=== PATIENT | male | born 1965 | race Caucasian/White ===

== ENCOUNTER 2017-05-17 18:21 | Observation (INO) ==
[2017-05-17 19:26] LABS: Basophils % 0.3 %; Eosinophils # 0.2 K/mcL (0.0-0.6); Eosinophils % 1.3 %; Hematocrit 46.8 % (37.5-50.1); Hemoglobin 15.6 g/dL (12.9-16.9); Immature Granulocytes % 0.6 % (0-4); Lymphocytes # 2.2 K/mcL (0.6-4.6); Lymphocytes % 17.5 %; Mean Corpuscular HGB Conc 33.3 g/dL (31.6-35.5); Mean Corpuscular Hemoglobin 28.2 pg (28.0-33.3); Mean Corpuscular Volume 84.5 fL (83.0-100.0); Mean Platelet Volume 8.5 fL (9.4-12.4); Monocytes # 1.5 K/mcL (0.0-1.3); Monocytes % 11.7 %; Neutrophils # 8.6 K/mcL (1.6-8.9); Platelet Count 315 K/mcL (140-400); Red Blood Count 5.54 M/mcL (4.19-5.50); Red Cell Distribution Width 13.8 % (11.5-14.5); Segmented Neutrophils % 68.6 %
[2017-05-17 19:33] LABS: INR 1.1; Prothrombin Time 11.6 Seconds (9.4-12.1)
[2017-05-17 19:36] LABS: Activated Partial Thrombo Time 31.5 Seconds (26.0-36.0)
[2017-05-17] MEDS ORDERED: Nitroglycerin 0.4 MG TAB.SUBL SL PRN (19:41)
--- NOTE | 2017-05-17 19:41 | Emergency Department Note ---
Disposition Clinical Impression: Hypokalemia Chest pain Qualifiers: Chest pain type: unspecified Qualified Code(s): R07.9 - Chest pain, unspecified Disposition: Admitted As Inpatient Condition: Good Referrals: Jhon Syed DO [Primary Care Provider] - Forms: ED Satisfaction Letter Chest Pain HPI - General Chief Complaint: ED Chest Pain Stated Complaint: chest pain/arm pain Time Seen by Provider: 05/17/17 18:30 Source: patient Limitations: no limitations Vital Signs Reviewed: Yes Nursing Notes Reviewed: Yes - History of Present Illness HPI Narrative: Mr. 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 The pain started yesterday as left arm pain that was nagging but not severe. He continued to deal with it until this afternoon when he began experiencing substernal chest pain that radiated to his back and his left neck. He denies SOB , palpitations, or worsening with exertion. To his knowledge he has never had a cardiac event, however he has had issues with hypokalemia in the past that has presented similarly. The patient further admits that he has not been taking his BP medications for about a month and a half due to inability to pay for them. Pt complaint: chest pain Onset (ago): day(s) (2) Time: 19:49 Duration: constant Onset: during rest Pain Location: left chest Severity: moderate Severity scale (1-10): 5 Quality: tightness, heaviness Pain Radiation: LUE, neck Improves with: nothing Worsens with: nothing Context: recent travel (4 [address] round trip over weekend) Associated symptoms: Denies: nausea, vomiting, dyspnea, palpitations, fever, cough - Related Data Previous Rx's Medication Instructions Recorded HYDROcodone/Acet 5/325 mg [[place] 1 - 2 tab PO Q4H PRN #7 tab 11/05/15 5-325 mg] HYDROcodone/Acet 5/325 mg [[place] 1 tab PO Q6H PRN #10 tab 11/15/15 5-325 mg] RX: predniSONE [Prednisone] 50 mg PO DAILY #7 tablet 11/15/15 Cyclobenzaprine [Flexeril] 10 mg PO Q8H #12 tablet 06/23/16 RX: Ibuprofen [Motrin] 800 mg PO Q8HR #30 tablet 06/23/16 HYDROcodone/Acet 5/325 mg [[place] 1 tab PO Q6H PRN #12 tab 10/20/16 5-325 mg] RX: PredniSONE [Deltasone] 40 mg PO DAILY #15 tablet 10/20/16 Benzonatate [Tessalon] 100 mg PO TID 3 Days capsule 01/22/17 Loratadine [Claritin] 10 mg PO DAILY #7 capsule 01/22/17 RX: Doxycycline 100 mg PO BID 7 Days capsule 01/22/17 Allergies Allergy/AdvReac Type Severity Reaction Status Date / Time No Known Allergies Allergy Verified 03/21/17 18:43 Review of Systems: CONSTITUTIONAL: No weight loss, fever, chills, weakness or fatigue. HEENT: Eyes: No visual loss, blurred vision, double vision or yellow sclerae. Ears, Nose, Throat: No hearing loss, sneezing, congestion, runny nose or sore throat. SKIN: No rash or itching. CARDIOVASCULAR: Chest pain present with radiation to left arm and neck, no dyspnea RESPIRATORY: No shortness of breath, cough or sputum. GASTROINTESTINAL: No anorexia, nausea, vomiting or diarrhea. No abdominal pain or blood. NEUROLOGICAL: No headache, dizziness, syncope, paralysis, ataxia, numbness or tingling in the extremities. No change in bowel or bladder control. MUSCULOSKELETAL: No muscle, back pain, joint pain or stiffness. HEMATOLOGIC: No anemia, bleeding or bruising. LYMPHATICS: No enlarged nodes. No history of splenectomy. PSYCHIATRIC: No history of depression or anxiety. ENDOCRINOLOGIC: No reports of sweating, cold or heat intolerance. No polyuria or polydipsia. ALLERGIES: No history of asthma, hives, eczema or rhinitis. Chest Pain PMH - Past Medical History Medical history: Reports: hypertension, RA, other Psychiatric history: Reports: no psych history - Social History Smoking Status: Never smoker Alcohol use: Reports: none Drug use: Reports: none Physical Exam Gen.: Vitals noted. No acute distress. AAOx3 HEENT: PERRL/EOMI, oropharynx clear, Normocephalic, atraumatic Neck: Supple. No adenopathy. Cardiac: RRR, no murmur, +S1/S2 Pulmonary: CTA bilaterally, no wheezes, rales or rhonchi, equal chest expansion Abdomen: soft, nontender, BS noted, no guarding Back: Nontender throughout. MSK: ROM intact, no joint swelling noted Extremities: no BLE edema, R calf tender associated with recent diagnosis of bravo's cyst, no cyanosis or clubbing Neuro: A&Ox3, moves all extremities, no focal deficits Psych: Appropriate mood and behavior - General Limitations: no limitations General appearance: alert, in no apparent distress Course Vital Signs Temperature 98.8 F 05/17/17 18:23 Pulse Rate 83 05/17/17 18:23 Respiratory Rate 16 05/17/17 18:23 Blood Pressure 234/109 05/17/17 18:23 O2 Sat by Pulse Oximetry 99 05/17/17 18:23 Temperature 98.8 F 05/17/17 18:23 Pulse Rate 78 05/17/17 20:11 Respiratory Rate 16 05/17/17 20:11 Blood Pressure 183/106 05/17/17 20:11 O2 Sat by Pulse Oximetry 98 05/17/17 20:11 Oxygen Delivery Oxygen Delivery Room Air Chest Pain - MDM Narrative Medical decision making narrative: Mr. Roland is a 52-year-old man with a history of RA and hypertension who presented to the ED with left arm pain and progressive chest pain for the past 3.5 hrs. the pain is in his left chest and now radiates to his central back and left jaw and left arm. He has never had pain like this before. He says that it is not aggravated by exertion and is not associated with shortness of breath. On arrival the patient's blood pressure was 230/110, however the blood pressure has dropped to 190/105 without intervention over the course of his time here. EKG on arrival demonstrate nonspecific ST-T wave changes the lateral precordial leads. We will start the patient on sublingual nitroglycerin. Metabolic panel demonstrated a potassium of 2.7, and he is being supplemented with both oral and IV potassium at this time. The patient will be admitted for chest pain workup he has not previously had a chest pain workup before. - Differential Diagnosis Likely: chest pain - Lab Data Lab results reviewed: Yes I reviewed the patient's lab results. Result diagrams: 05/17/17 19:10 05/17/17 19:10 Lab Results 05/17/17 05/17/17 05/17/17 Range/Units 19:10 19:10 19:10 WBC 12.5 H (4.3-11.1) K/mcL RBC 5.54 H (4.19-5.50) M/mcL Hgb 15.6 (12.9-16.9) g/dL Hct 46.8 (37.5-50.1) % MCV 84.5 (83.0-100.0) fL MCH 28.2 (28.0-33.3) pg MCHC 33.3 (31.6-35.5) g/dL RDW 13.8 (11.5-14.5) % Plt Count 315 (140-400) K/mcL MPV 8.5 L (9.4-12.4) fL Immature Gran % 0.6 (0-4) % Seg Neutrophils % 68.6 % Lymphocytes % 17.5 % Monocytes % 11.7 % Eosinophils % 1.3 % Basophils % 0.3 % Neutrophils # 8.6 (1.6-8.9) K/mcL Lymphocytes # 2.2 (0.6-4.6) K/mcL Monocytes # 1.5 H (0.0-1.3) K/mcL Eosinophils # 0.2 (0.0-0.6) K/mcL Basophils # 0.0 (0.0-0.2) K/mcL PT 11.6 (9.4-12.1) Seconds INR 1.1 APTT 31.5 (26.0-36.0) Seconds Sodium 140 (136-145) mEq/L Potassium 2.7 L (3.5-5.1) mEq/L Chloride 104 (98-107) mEq/L Carbon Dioxide 30 H (23-29) mEq/L BUN 12 (6-20) mg/dL Creatinine 0.79 (0.70-1.30) mg/dL Est GFR ( Amer) > 60 (> 60) Est GFR (Non-Af Amer) > 60 (> 60) BUN/Creatinine Ratio 15 (6-26) Glucose 93 (70-105) mg/dL Calculated Osmolality 289 (280-300) Calcium 8.8 (8.6-10.3) mg/dL Troponin I (< 0.04) ng/mL 05/17/17 Range/Units 19:10 WBC (4.3-11.1) K/mcL RBC (4.19-5.50) M/mcL Hgb (12.9-16.9) g/dL Hct (37.5-50.1) % MCV (83.0-100.0) fL MCH (28.0-33.3) pg MCHC (31.6-35.5) g/dL RDW (11.5-14.5) % Plt Count (140-400) K/mcL MPV (9.4-12.4) fL Immature Gran % (0-4) % Seg Neutrophils % % Lymphocytes % % Monocytes % % Eosinophils % % Basophils % % Neutrophils # (1.6-8.9) K/mcL Lymphocytes # (0.6-4.6) K/mcL Monocytes # (0.0-1.3) K/mcL Eosinophils # (0.0-0.6) K/mcL Basophils # (0.0-0.2) K/mcL PT (9.4-12.1) Seconds INR APTT (26.0-36.0) Seconds Sodium (136-145) mEq/L Potassium (3.5-5.1) mEq/L Chloride (98-107) mEq/L Carbon Dioxide (23-29) mEq/L BUN (6-20) mg/dL Creatinine (0.70-1.30) mg/dL Est GFR ( Amer) (> 60) Est GFR (Non-Af Amer) (> 60) BUN/Creatinine Ratio (6-26) Glucose (70-105) mg/dL Calculated Osmolality (280-300) Calcium (8.6-10.3) mg/dL Troponin I < 0.03 (< 0.04) ng/mL - Radiology Data Radiology results reviewed: Yes I reviewed the patient's radiology results. - EKG Data EKG attestation: Yes I reviewed and interpreted this EKG. EKG results narrative: EKG demonstrates normal sinus rhythm with a rate of 77, TX 138, QRS 106, QTC [address]-T wave changes in leads V4 through V6 with prominent U wave present and V3+V4. There is no ST elevation Heart Score - Score History: Moderately Suspicious EKG: Non Specific repolarisation Disturbance Age: 45-65 Risk Factors: 1-2 risk factors
--- NOTE | 2017-05-17 19:44 | Emergency Department Note ---
START Narrative - START START: I examined this patient and my medical decision-making was reviewed with the Resident Physician. I agree with the documented findings, disposition and treatment plan as described except to the extent set forth below. 52-year-old male presents to the ER for chest pain. Workup for ACS. Likely admission. Patient's blood pressure is been severely high at 190 systolic. Patient is off his blood pressure medications for the past few months. History of a heart catheter 3-4 years ago that he states was okay. This was done for chest pain. patient will be given a nitroglycerin here in the ER for chest pressure. His chest x-ray is negative. Admit for ACS evaluation
[2017-05-17 19:47] LABS: BUN/Creatinine Ratio 15 (6-26); Blood Urea Nitrogen 12 mg/dL (6-20); Calcium 8.8 mg/dL (8.6-10.3); Carbon Dioxide 30 mEq/L (23-29); Chloride 104 mEq/L (98-107); Glucose 93 mg/dL (70-105); Osmolality,Calculated 289 (280-300); Potassium 2.7 mEq/L (3.5-5.1); Sodium 140 mEq/L (136-145); eGFR For African Americans > 60 (> 60); eGFR For Non-African Americans > 60 (> 60)
[2017-05-17] MEDS ORDERED: Potassium Chloride Elixir 20 MEQ/15 ML UDC PO ONE (23:17)
[2017-05-17] MEDS ORDERED: Aspirin 325 MG TABLET PO ONE (23:20)
[2017-05-17] MEDS ORDERED: *HR* Methotrexate 2.5 MG TABLET PO SCH (23:30)
--- NOTE | 2017-05-17 23:31 | Internal Med History&Physical ---
Date of Encounter: 05/17/17 Time of Encounter: 22:00 Assessment and Plan (1) Costochondral chest pain Current visit: Yes Status: Acute (2) Chest pain Current visit: Yes Status: Acute Qualifiers: Chest pain type: unspecified Qualified Code(s): R07.9 - Chest pain, unspecified (3) Hypokalemia Current visit: Yes Status: Acute Replace potassium, check magnesium, check BMP and magnesium next morning (4) HTN (hypertension) Current visit: Yes Status: Acute Qualifiers: Hypertension type: essential hypertension Qualified Code(s): I10 - Essential (primary) hypertension Internal Medicine - H&P: HPI Chief complaint: Chest pain Admitted From: Emergency Dept Plans for Post Hospital Care: Home History of present illness: Mr. Roland is a 52 year old male with past medical history of rheumatoid arthritis, patient stated that yesterday he started to have left arm pain, he denies any chest pain with his arm pain, no shortness of breath. Patient stated that he thought that this most likely secondary to his rheumatoid arthritis, around noontime today patient started to have left shoulder pain then he started to have left sided chest pain radiating to his neck. Patient denies any shortness of breath or palpitation. Patient denies any exacerbation factor or relieving factor for his pain. Patient has history of uncontrolled hypertension and unfortunately he is not taking his medication due to financial issues. On arrival his systolic blood pressure was 190. Patient stated he continued to have chest pain 4 out of 10 in severity and not relieved by nitroglycerin Past Med Surg Social Fam HX - Past Medical History Medical history: hypertension, RA, other (History of Parsons's cyst) Psychiatric history: no psych history - Social History Smoking Status: Never smoker Smokeless Tobacco Status: Yes Alcohol use: none Drug use: none - Family History Mother Hx Family Cardiac Disorders: Yes Internal Medicine - H&P: Meds Allopurinol [Zyloprim 300 MG] 450 mg PO DAILY 05/17/17 [History] Amitriptyline [Elavil] 25 mg PO HS 05/17/17 [History] Folic Acid [Folic Acid] 1 mg PO DAILY 05/17/17 [History] Irbesartan [Avapro] 300 mg PO DAILY 05/17/17 [History] Methotrexate [Otrexup] 15 mg PO QWEEK 05/17/17 [History] Metoprolol [Lopressor] 50 mg PO BID 05/17/17 [History] Potassium Chloride [K-Tab ER] 20 meq PO DAILY 05/17/17 [History] Triamterene/HCTZ 37.5/25mg [Dyazide] 1 each PO DAILY 05/17/17 [History] 3 Allergy/AdvReac Type Severity Reaction Status Date / Time No Known Allergies Allergy Verified 03/21/17 18:43 All Systems PM: A 10-system review of systems was performed and is negative for pertinent findings except as documented above in the HPI. - Constitutional Vitals: Temp Pulse Resp BP Pulse Ox 98.1 F 70 16 182/105 96 05/17/17 23:26 05/17/17 23:26 05/17/17 23:26 05/17/17 23:26 05/17/17 23:26 General appearance: Present: no acute distress, obese - Head Head exam: Present: atraumatic, normocephalic - Neck Neck exam general surgery: Present: supple, trachea midline. Absent: lymphadenopathy - Respiratory Respiratory exam: Present: chest wall tenderness (Left-sided chest wall tenderness), decreased breath sounds. Absent: accessory muscle use, rales, rhonchi, wheezes - Cardiovascular Cardiovascular exam: Present: RRR, +S1, +S2. Absent: diastolic murmur, gallop, rubs, systolic murmur - GI/Abdominal GI/Abdominal exam: Present: normal bowel sounds, soft, no peritoneal signs. Absent: distended, tenderness - Extremities Exam Extremities exam: Present: warm, radial pulses palpable and symmetrical. Absent : calf tenderness, cyanotic, pedal edema - Neurological Exam Neurological exam: Present: CN II-XII intact, oriented X3, no focal deficits. Absent: pronater drift, facial droop, speech deficit - Skin Skin exam: Present: dry, intact Internal Med - H&P Results - Labs CBC & Chem 7: 05/18/17 00:37 05/17/17 19:10
[2017-05-17] MEDS ORDERED: 0.9 % Sodium Chloride 500 ML ONE (23:46)
[2017-05-17] MEDS: Folic Acid 1 MG TABLET PO SCH (23:56)
[2017-05-18 01:05] LABS: Basophils % 0.2 %; Eosinophils # 0.2 K/mcL (0.0-0.6); Eosinophils % 1.5 %; Hematocrit 45.5 % (37.5-50.1); Hemoglobin 15.2 g/dL (12.9-16.9); Immature Granulocytes % 0.5 % (0-4); Lymphocytes # 1.9 K/mcL (0.6-4.6); Lymphocytes % 14.9 %; Mean Corpuscular HGB Conc 33.4 g/dL (31.6-35.5); Mean Corpuscular Hemoglobin 28.4 pg (28.0-33.3); Mean Platelet Volume 8.9 fL (9.4-12.4); Monocytes # 1.1 K/mcL (0.0-1.3); Monocytes % 8.4 %; Neutrophils # 9.7 K/mcL (1.6-8.9); Platelet Count 262 K/mcL (140-400); Red Blood Count 5.35 M/mcL (4.19-5.50); Red Cell Distribution Width 14.1 % (11.5-14.5); Segmented Neutrophils % 74.5 %
[2017-05-18 01:10] LABS: INR 1.1; Prothrombin Time 11.4 Seconds (9.4-12.1)
[2017-05-18 09:02] LABS: BUN/Creatinine Ratio 15 (6-26); Blood Urea Nitrogen 13 mg/dL (6-20); Calcium 8.8 mg/dL (8.6-10.3); Carbon Dioxide 27 mEq/L (23-29); Chloride 109 mEq/L (98-107); Chol/HDL Ratio 3.8 (0-4.9); Cholesterol 126 mg/dL (< 200); Glucose 95 mg/dL (70-105); HDL Cholesterol 33 mg/dL (40-59); LDL Cholesterol,Calculated 81 mg/dL (0-99); Osmolality,Calculated 292 (280-300); Potassium 3.8 mEq/L (3.5-5.1); Sodium 141 mEq/L (136-145); Triglycerides 62 mg/dL (< 150); eGFR For African Americans > 60 (> 60); eGFR For Non-African Americans > 60 (> 60)
[2017-05-18] MEDS ORDERED: Regadenoson 0.4 MG/5 ML SYRINGE IVP ONE (09:48)
[2017-05-18] MEDS: Folic Acid 1 MG TABLET PO SCH (11:04)
--- NOTE | 2017-05-18 15:59 | Discharge Summary ---
Date of Encounter: 05/18/17 Time of Encounter: 11:15 - Discharge Diagnosis (1) DVT prophylaxis Priority: Secondary Status: Acute Comments: Patient was ambulatory. (2) Chest pain Priority: Secondary Status: Acute Comments: She reports sudden onset left arm pain while watching a movie. He reports that for well pain began radiating to his neck and into his left chest. Patient with history of RA and this was most likely secondary to RA. Patient reported no shortness of breath, no nausea or vomiting. No diaphoresis. Patient does have uncontrolled hypertension is not taking his medication due to financial constraints. He has not had chest pain today. The pain is reproducible with palpation and deep inspiration. He denies any change in routine. Troponins were negative 3. Stress test was negative. Chest x-ray was negative. Recommend the patient apply moist heat and taking analgesic pain relief for chest wall pain. Follow-up with primary care for continued evaluation and return immediately if symptoms return. Qualifiers: Chest pain type: unspecified Qualified Code(s): R07.9 - Chest pain, unspecified (3) Hypokalemia Priority: Secondary Status: Resolved (4) Costochondral chest pain Priority: Secondary Status: Acute Comments: Plan as above. (5) HTN (hypertension) Priority: Secondary Status: Chronic Comments: Patient has been hypertensive since arrival. He has not been taking his blood pressure medications at home due to financial problems. Qualifiers: Hypertension type: essential hypertension Qualified Code(s): I10 - Essential (primary) hypertension - Discharge Medications Prescriptions: Metoprolol [Lopressor] 50 mg PO BID #60 tablet Triamterene/HCTZ 37.5/25mg [Dyazide] 1 each PO DAILY #30 tablet Home Medications: Allopurinol [Zyloprim 300 MG] 450 mg PO DAILY 05/17/17 [History] Amitriptyline [Elavil] 25 mg PO HS 05/17/17 [History] Folic Acid 1 mg PO DAILY 05/17/17 [History] Irbesartan [Avapro] 300 mg PO DAILY 05/17/17 [History] Methotrexate [Otrexup] 15 mg PO QWEEK 05/17/17 [History] Potassium Chloride [K-Tab ER] 20 meq PO DAILY 05/17/17 [History] Metoprolol [Lopressor] 50 mg PO BID #60 tablet 05/18/17 [Rx] Triamterene/HCTZ 37.5/25mg [Dyazide] 1 each PO DAILY #30 tablet 05/18/17 [Rx] Allergies/Adverse Reactions: 3 Allergy/AdvReac Type Severity Reaction Status Date / Time No Known Allergies Allergy Verified 03/21/17 18:43 Procedures/tests Complete & Pending: Procedures Performed prior 72 hours Category Date Time Status NM herminio perf SPECT multi [NM] Routine Exams 05/18/17 06:54 Taken SP pharm nuclear stress Routine Y 05/18/17 06:54 Completed Date of admission: 05/17/17 22:06 Primary care physician: Kristin Curtis Discharging clinician: Azucena Gonzalez Anticipated date of discharge: 05/18/17 - Patient Status Disposition: Home, Self-Care Condition: Good Functional capacity at discharge: independent ambulation Overall status at discharge: patient is back to baseline - Discharge Instructions Follow Up With: Jhon Syed DO [Primary Care Provider] - 05/26/17 10:30 am Additional Instructions: Apply warm compresses to chest wall. Anti-inflammatories for pain control. Follow-up with primary care provider in the next 7-10 days for recheck. Return to the emergency department if her symptoms return, or for any other problems or concerns. If he began having a cough, fever, chills, return to the emergency department for evaluation. Taking her medications as directed. He may return to her normal activities as tolerated. - Diet and Activity Activity: increase activity as tolerated Diet: advance to your usual diet Hospital course: Mr. Roland is a 52 year old male with no significant past medical history, positive for gout, depression, mild hypertension. Patient presented with sudden onset left arm, left neck pain that radiated into the left chest. Began Monday night while he was watching worse. He denies any chest pain since that time. Pain is reproducible with palpation and deep inspiration. His lungs are clear. Stress test was negative, troponins were negative 3. Patient was admitted with hypokalemia. It was corrected with supplementation. Patient denies chest pain. He states that he is ready to go home. Stable and ready for discharge. - Time Spent with Patient Total time spent providing and/or coordinating discharge services: Less than 30 minutes - Constitutional Vitals: Temp Pulse Resp BP Pulse Ox 97.5 F L 61 18 175/102 96 05/18/17 15:21 05/18/17 15:21 05/18/17 15:21 05/18/17 15:21 05/18/17 15:21 General appearance: Present: cooperative, A&O X 3, no acute distress, obese, answers questions appropriately - Head Head exam: Present: atraumatic, normal inspection, normocephalic - Eye Eye exam: Present: normal appearance, conjuntiva pink, sclera anicteric - Neck Neck exam general surgery: Present: supple, trachea midline. Absent: lymphadenopathy - Respiratory Respiratory exam: Present: chest wall tenderness, CTAB. Absent: accessory muscle use, rales, rhonchi, wheezes - Cardiovascular Cardiovascular exam: Present: RRR, +S1, +S2. Absent: diastolic murmur, gallop, rubs, systolic murmur - GI/Abdominal GI/Abdominal exam: Present: normal bowel sounds, soft, no peritoneal signs. Absent: distended, hepatomegaly, tenderness - Extremities Exam Extremities exam: Present: warm, radial pulses palpable and symmetrical. Absent : calf tenderness, cyanotic, pedal edema - Neurological Exam Neurological exam: Present: alert, oriented X3, no focal deficits. Absent: facial droop, speech deficit - Skin Skin exam: Present: dry, intact, normal color, warm. Absent: rash
--- NOTE | 2017-05-18 16:40 | Electrocardiograph Report ---
[address] [address] Test Date: 2017-05-17 Pat Name: Ankit Roland Department: 102 Room: 3B Gender: M [employer]: Am : 1965 Requested By: Joan Lovell Order Number: [id number] Reading MD: Kenny Martins MD Measurements Intervals Wilson Rate: 77 P: 64 MO: 138 QRS: 83 QRSD: 106 T: 49 QT: 319 QTc: 350 Interpretive Statements SINUS RHYTHM LEFT ATRIAL ENLARGEMENT Electronically Signed On 05-18-2017 16:38:58 EST by Kenny Martins MD
[2017-05-18] MEDS ORDERED: methylPREDNISolone 125 MG/2 ML VIAL IVP ONE (23:29)
[2017-05-19] MEDS ORDERED: Acetaminophen 325 MG TABLET PO PRN (07:57)
--- NOTE | 2017-05-19 09:38 | Internal Med Progress Note ---
Date of Encounter: 05/19/17 Time of Encounter: 08:35 - Assessment and plan (1) Chest pain Current Visit: Yes Status: Acute Assessment and plan: He reports sudden onset left arm pain while watching a movie. He reports that for well pain began radiating to his neck and into his left chest. Patient with history of RA and this was most likely secondary to RA. Patient reported no shortness of breath, no nausea or vomiting. No diaphoresis. Patient does have uncontrolled hypertension is not taking his medication due to financial constraints. He has not had chest pain today. The pain is reproducible with palpation and deep inspiration. He denies any change in routine. Troponins were negative 3. Stress test was negative. Chest x-ray was negative. Recommend the patient apply moist heat and taking analgesic pain relief for chest wall pain. BP returned to baseline and pt has denied any further chest pain/tightness. He denies SOB, n/v, or diaphoresis. Follow-up with primary care for continued evaluation and return immediately if symptoms return. Qualifiers: Chest pain type: unspecified Qualified Code(s): R07.9 - Chest pain, unspecified (2) Hypokalemia Current Visit: Yes Status: Resolved Assessment and plan: Resolved. (3) Costochondral chest pain Current Visit: Yes Status: Acute Assessment and plan: Pain was reproducible with palpation and deep inspiration. Recommend moist heat and antiinflammatories. (4) HTN (hypertension) Current Visit: Yes Status: Chronic Assessment and plan: BP has returned to baseline. Home meds have been restarted. Qualifiers: Hypertension type: essential hypertension Qualified Code(s): I10 - Essential (primary) hypertension (5) Headache Current Visit: Yes Status: Acute Assessment and plan: Pt today reports frontal headache. He is concerned due to the fact that he does not normally get headaches. He has tenderness with palpation to frontal sinus. He denies rhinorrhea, PND, cough, vision changes or neck tenderness. Head cT ordered for evaluation. Claritin daily and Flonase daily. Qualifiers: Headache type: other headache syndrome Qualified Code(s): G44.89 - Other headache syndrome (6) DVT prophylaxis Current Visit: Yes Status: Acute Assessment and plan: Pt remains ambulatory. - Time Spent With Patient less than 15 minutes - Subjective Interval history: Pt was seen and assessed at 0835 this a.m. not at bs. Apparently at discharge last night, pts stated that she wanted him to have an LHC because they know people who have had MA with negative stress tests. Pt reported intermittent chest pressure that was unchange from his normal. He was mildly hypertensive so we kept him overnight for monitoring. This a.m. he states that he has a frontal OLSON and he does not normally get headaches. CT ordered. Will be discharged if negative. PT denies chest pain or pressure this a.m., BP 140/80 this a.m. He denies SOB, n/v/d, abdominal pain or vision changes , no dizziness or neck pain/stiffness. - Constitutional Vitals: Temp Pulse Resp BP Pulse Ox 98.2 F 62 18 140/87 96 05/19/17 06:24 05/19/17 06:24 05/19/17 06:24 05/19/17 06:24 05/19/17 06:24 General appearance: Present: cooperative, A&O X 3, no acute distress, obese, answers questions appropriately - Head Head exam: Present: atraumatic, normal inspection, normocephalic - Eye Eye exam: Present: EOMI, normal appearance, PERRL, conjuntiva pink, sclera anicteric. Absent: nystagmus - Neck Neck exam general surgery: Present: normal inspection, supple, trachea midline. Absent: lymphadenopathy, tenderness - Respiratory Respiratory exam: Present: CTAB. Absent: accessory muscle use, chest wall tenderness, decreased breath sounds, rales, rhonchi, wheezes - Cardiovascular Cardiovascular exam: Present: RRR, +S1, +S2. Absent: diastolic murmur, gallop, rubs, systolic murmur - GI/Abdominal GI/Abdominal exam: Present: normal bowel sounds, soft, no peritoneal signs. Absent: distended, tenderness - Extremities Exam Extremities exam: Present: normal capillary refill, normal inspection, warm, radial pulses palpable and symmetrical. Absent: calf tenderness, cyanotic, pedal edema, tenderness - Neurological Exam Neurological exam: Present: alert, oriented X3, no focal deficits, strengths equal and symetr throughout. Absent: facial droop, speech deficit - Skin Skin exam: Present: dry, intact, normal color, warm. Absent: rash Internal Medicine: Result - Labs CBC & Chem 7: 05/18/17 00:37 05/18/17 07:41 - ABG Interpretation ABG results: PT/INR, D-dimer PT 11.4 Seconds (9.4-12.1) 05/18/17 00:37 Consult Discharge Plan - Plan Additional Instructions: Apply warm compresses to chest wall. Anti-inflammatories for pain control. Follow-up with primary care provider in the next 7-10 days for recheck. Return to the emergency department if her symptoms return, or for any other problems or concerns. If he began having a cough, fever, chills, return to the emergency department for evaluation. Taking her medications as directed. He may return to her normal activities as tolerated. Referrals: Jhon Syed DO [Primary Care Provider] - 05/26/17 10:30 am Prescriptions: Metoprolol [Lopressor] 50 mg PO BID #60 tablet Triamterene/HCTZ 37.5/25mg [Dyazide] 1 each PO DAILY #30 tablet
[2017-05-19] MEDS: Folic Acid 1 MG TABLET PO SCH (09:50)
[2017-05-19 10:38] VITALS: BP 142/90
== END 2017-05-19 13:25 | disposition home or self-care (01) ==
LOC: EMEROO 18:21 → 3BNU 18:21
PROVIDERS: ADMIT Family Medicine; ATTEND Registered Nurse

== ENCOUNTER 2018-02-12 10:54 | Inpatient (IN) ==
--- NOTE | 2018-02-11 22:10 | Discharge Summary ---
<MarissarobbTarah peguero Raman - Last Filed: 02/11/18 22:13> Orders not resulted at time of discharge: Pending orders 02/12/18 00:01 XR knee RT limited 1-2V [XR] Routine H/H [Hemoglobin and Hematocrit] [HEME] Routine Date of Encounter: 02/11/18 - Discharge Diagnosis (1) Status post total knee replacement, right Status: Acute (2) Arthritis of knee, right Status: Acute (3) Gout Status: Acute (4) Rheumatoid arthritis Status: Acute (5) HTN (hypertension) Status: Chronic - Hospital Course Hospital course: Mr. Roland is a 52 year old male - Time Spent with Patient Total time spent providing and/or coordinating discharge services: - Discharge Medications Prescriptions: PredniSONE [Deltasone] 20 mg PO DAILY #12 tablet Home Medications: Allopurinol [Zyloprim 300 MG] 450 mg PO DAILY 05/17/17 [History] Irbesartan [Avapro] 300 mg PO DAILY 05/17/17 [History] Potassium Chloride [K-Tab ER] 20 meq PO DAILY 05/17/17 [History] Metoprolol [Lopressor] 50 mg PO BID #60 tablet 05/18/17 [Rx] Triamterene/HCTZ 37.5/25mg [Dyazide] 1 each PO DAILY #30 tablet 05/18/17 [Rx] Aspirin Enteric Coated [Aspirin EC] 325 mg PO BID #20 tablet.dr 02/11/18 [Rx] OxyCODONE Immed Rel [Roxicodone 5 MG] 5 mg PO Q6HR PRN 7 Days #28 tablet [Rx] Leflunomide 20 mg PO DAILY 02/12/18 [History] PredniSONE [Deltasone] 20 mg PO DAILY #12 tablet 02/15/18 [Rx] Allergies/Adverse Reactions: 3 Allergy/AdvReac Type Severity Reaction Status Date / Time No Known Allergies Allergy Verified 02/12/18 11:41 Primary care physician: Jhon Syed DO - Patient Status Disposition: Transfer SNF Condition: Good - Discharge Instructions Follow Up With: Jhon Syed DO [Primary Care Provider] - <Nick Ibanez - Last Filed: 02/12/18 11:30> Orders not resulted at time of discharge: Pending orders 02/12/18 00:01 XR knee RT limited 1-2V [XR] Routine H/H [Hemoglobin and Hematocrit] [HEME] Routine 02/12/18 11:06 US anesthesia pain block [US] Routine Date of Encounter: 02/12/18 - Discharge Diagnosis (1) Arthritis of knee, right Priority: Primary Status: Chronic (2) Gout Priority: Secondary Status: Chronic Qualifiers: Gout site: unspecified site Gout etiology: unspecified cause Chronicity: unspecified Qualified Code(s): M10.9 - Gout, unspecified (3) Rheumatoid arthritis Priority: Secondary Status: Chronic Qualifiers: Rheumatoid arthritis location: unspecified site Rheumatoid factor presence : unspecified presence Qualified Code(s): M06.9 - Rheumatoid arthritis, unspecified (4) Status post total knee replacement, right Priority: Primary Status: Acute (5) HTN (hypertension) Priority: Secondary Status: Chronic Qualifiers: Hypertension type: unspecified Qualified Code(s): I10 - Essential (primary ) hypertension - Hospital Course Hospital course: Mr. Roland is a 52 year old male - Time Spent with Patient Total time spent providing and/or coordinating discharge services: Primary care physician: Jhon Syed DO <Gudelia Dowling - Last Filed: 02/15/18 18:06> - NOTES TO OUTPATIENT PROVIDER Notes to Outpatient Provider: Will start prednisone taper during admission on per following protocol: 20mg daily x 3 days (total). 15mg daily x 3 days. 10mg daily x 3 days. 5mg daily x 3 days Orders not resulted at time of discharge: Pending orders 02/12/18 11:06 US anesthesia pain block [US] Routine Date of Encounter: 02/15/18 Time of Encounter: 12:20 - Discharge Diagnosis (1) Status post total knee replacement, right Priority: Primary Status: Acute (2) Arthritis of knee, right Priority: Primary Status: Chronic (3) Acute blood loss anemia Priority: Secondary Status: Acute (4) Postoperative urinary retention Priority: Secondary Status: Chronic (5) DVT prophylaxis Priority: Secondary Status: Acute (6) Gout Priority: Secondary Status: Chronic Qualifiers: Gout site: unspecified site Gout etiology: unspecified cause Chronicity: unspecified Qualified Code(s): M10.9 - Gout, unspecified (7) HTN (hypertension) Priority: Secondary Status: Chronic Qualifiers: Hypertension type: unspecified Qualified Code(s): I10 - Essential (primary ) hypertension (8) Rheumatoid arthritis Priority: Secondary Status: Chronic Qualifiers: Rheumatoid arthritis location: unspecified site Rheumatoid factor presence : unspecified presence Qualified Code(s): M06.9 - Rheumatoid arthritis, unspecified (9) Hypokalemia Status: Resolved - Hospital Course Hospital course: Mr. Roland is a 52 year old male s/p Right robotic-assisted Total knee replacement 02/12/18 with history of HTN, gout, and RA. He did have episode of postoperative urinary retention and did require straight cath day of surgery but this resolved by POD#1 and did not require fleming. Patient has history of this. Otherwise progressed well and participated in therapy. Labs were rechecked today before discharge and he was found to have elevated WBC at 15.5, he has had a temp MAX of 99.4 during hospital course wanted to confirm no development of pneumonia or other infectious process. CXR today showed no acute abnormalities. Denied cough, chest pain, SOB, urinary burning. He feels well. He states his WBC always elevated when his RA flairs. He states he did not get his RA medication until today and has gone several days without it and now feels a flair happening. We did contact Dr. Young office who recommended starting a prednisone taper for this acute flair and this was started today to continue at [facility]. Patient is wanting to leave. Vitals are stable, afebrile. He is now stable for discharge. Patient seen at bedside, without complaints. A&O x 3 Afebrile, vital signs stable. dressings c/d/i with no visible drainage or erythema. no calf tenderness to palpation good dorsiflexion of foot, grossly NV intact. Labs reviewed. H/H 12.0/35.3- stable, asymptomatic. WBC 15.5 - Per patient this is his normal during RA flair Pain control: adequate Participating in PT. All questions and concerns addressed. Chronic h/o urinary retension postoperatively.now resolved Educated on use of incentive spirometer. Encouraged ambulation and proper hydration. Patient educated on post-operative restrictions and post-operative care. Assessment and plan: Continue with postoperative care Discharge plan: [facility], accepted at [place] today - Time Spent with Patient Total time spent providing and/or coordinating discharge services: Date of admission: 02/12/18 16:36 Primary care physician: Jhon Syed DO Consults: 02/12/18 19:15 Consult to Orthopedic Navigator [CONS] [CONS] Routine Consult to Physical Therapy [CONS] Routine Comment: Evaluate, develop and impliment POC Reason for Consult: post knee surgery Does patient have active BEDREST order?: No Is patient medically & hemodynamically stable?: Yes Consult to Book Repairer [CONS] Routine Reason for SW Consult: post op joint replacement RT Post Op Consult [CONS] Routine Discharging clinician: Nick Ibanez Anticipated date of discharge: 02/15/18 Labs on day of discharge: Labs from last 24 hours 02/15/18 02/15/18 12:07 12:07 WBC 15.5 H D RBC 4.05 L Hgb 12.0 L D Hct 35.3 L MCV 87.2 MCH 29.6 MCHC 34.0 RDW 14.2 Plt Count 355 MPV 9.2 L Immature Gran % 0.9 Seg Neutrophils % 74.1 Lymphocytes % 8.9 Monocytes % 14.5 Eosinophils % 1.4 Basophils % 0.2 Neutrophils # 11.5 H Lymphocytes # 1.4 Monocytes # 2.3 H Eosinophils # 0.2 Basophils # 0.0 Sodium 136 Potassium 3.6 Chloride 99 Carbon Dioxide 30 H BUN 11 Creatinine 0.71 Est GFR ( Amer) > 60 Est GFR (Non-Af Amer) > 60 BUN/Creatinine Ratio 15 Glucose 118 H Calculated Osmolality 282 Calcium 9.5 - Impressions ITS Impressions Knee X-Ray 02/12/18 00:01 IMPRESSION: Expected postoperative changes from total knee arthroplasty with patellar resurfacing D/ / 02/12/2018 16:31:23 Aleksander Zazueta MD / [facility] Interpreting Provider: Aleksander Zazueta MD Chest X-Ray 02/15/18 13:12 IMPRESSION: No acute cardiopulmonary abnormality. D/ / Nick Ridley MD / Nick Ridley MD Interpreting Provider: Nick Ridley MD - Patient Status Functional capacity at discharge: uses cane/walker Overall status at discharge: patient is back to baseline - Diet and Activity Activity: as per physical therapy Diet: advance to your usual diet
[2018-02-12] MEDS ORDERED: Famotidine 20 MG/2 ML VIAL IVP ONE (11:05)
[2018-02-12] MEDS ORDERED: Celecoxib 100 MG CAPSULE PO ONE (11:06)
[2018-02-12] MEDS ORDERED: Pregabalin 75 MG CAPSULE PO ONE (11:06)
[2018-02-12] MEDS ORDERED: Acetaminophen IV 1,000 MG/100 ML INFUS..BTL IVPB ONE (11:06)
[2018-02-12] MEDS ORDERED: CeFAZolin Syr 2,000MG/20 ML 2,000 MG/20 ML SYRINGE IVPB ONE (11:15)
[2018-02-12] MEDS ORDERED: Ringers Solution, Lactated 1,000 ML IVC SCH ×2 (11:15→19:15)
[2018-02-12] MEDS ORDERED: *HR* FentaNYL (PF) 100 MCG/2 ML VIAL ONE (11:16)
[2018-02-12] MEDS ORDERED: *HR* Midazolam HCl 2 MG/2 ML VIAL ONE (11:16)
[2018-02-12] MEDS ORDERED: Dexamethasone 4 MG/ML VIAL ONE (11:17)
[2018-02-12] MEDS ORDERED: *HR* Propofol 200 MG/20 ML VIAL IVP ONE (11:18)
[2018-02-12] MEDS ORDERED: Lidocaine -MPF 2% 2 ML VIAL ONE (11:18)
[2018-02-12] MEDS ORDERED: Ondansetron 4 MG/2 ML VIAL ONE (11:18)
--- NOTE | 2018-02-12 11:30 | History & Physical Report ---
Date of Encounter: 02/12/18 Time of Encounter: 11:30 24 Hour HP Update - Instructions Instructions: If the History and Physical is less than 30 days old and was completed prior to A.M. admission and or procedure and has NOT been updated on calendar day of procedure please complete this update prior to performing procedure. - Update Patient reports changes in Medical Condition: No Changes in examination, assessment, or condition: No Changes in Medication: No Preop tests/diagnostics Reviewed: Yes Surgery Remains Indicated: Yes Consent for Planned Operative Procedure(s) Verified: Yes - Pre-Operative Checklist Preoperative Checklist Indicated: No Prophylactic Antibiotic Ordered: Yes Is VTE Prophylaxis Indicated?: Yes
[2018-02-12] MEDS ORDERED: ROPIVACAINE HCL/PF 0.5% 30 ML VIAL ONE (11:50)
[2018-02-12] MEDS ORDERED: Bupivacaine/Clonidine Syringe 1 EACH SYRINGE ONE (11:51)
--- NOTE | 2018-02-12 11:57 | Anesthesia Evaluation PreOp ---
Date of Encounter: 02/12/18 Time of Encounter: 12:00 - Past History Planned Operation: Rt TKA Cardiac History: HTN, Hyperlipidemia, Other (CAD) Pulmonary History: Denies Any Significant HX [employer]HE[employer]ADER History: Denies Any Significant HX, Other (Restless Leg Syndrome) Other Medical History: Other (Gout Osteoarthritis) Anesthesia History: No Prior Anesthetic Complications Alcohol Use: rarely Drug use: none Medications and Allergies Allopurinol [Zyloprim 300 MG] 450 mg PO DAILY 05/17/17 [History] Irbesartan [Avapro] 300 mg PO DAILY 05/17/17 [History] Potassium Chloride [K-Tab ER] 20 meq PO DAILY 05/17/17 [History] Metoprolol [Lopressor] 50 mg PO BID #60 tablet 05/18/17 [Rx] Triamterene/HCTZ 37.5/25mg [Dyazide] 1 each PO DAILY #30 tablet 05/18/17 [Rx] Aspirin Enteric Coated [Aspirin EC] 325 mg PO BID #20 tablet. 02/11/18 [Rx] OxyCODONE Immed Rel [Roxicodone 5 MG] 5 mg PO Q6HR PRN 7 Days #28 tablet [Rx] Leflunomide [Leflunomide] 20 mg PO DAILY 02/12/18 [History] 3 Allergy/AdvReac Type Severity Reaction Status Date / Time No Known Allergies Allergy Verified 02/12/18 11:41 - Meds/Allergy Pre-op Review Medications Reviewed: Yes Allergies Reviewed: Yes Beta Blockers on Current Med List: Yes (Metoprolol today 0800) Anesthesia Results - Labs Laboratory Tests 02/08/18 02/08/18 02/08/18 16:47 16:47 16:47 Hgb 14.2 Hct 43.4 Plt Count 305 PT 12.5 H INR 1.1 APTT 36.9 H Sodium 137 Potassium 3.7 BUN 15 Creatinine 0.85 - Imaging EKG: report reviewed (SR) Additional studies: Stress Test negative for ischemia EF 70% Anesthesia Exam O2 Sat Height 1.75 m Height 1.75 m Weight 87.543 kg Weight 87.543 kg O2 Sat by Pulse Oximetry 97 Vital Signs Temp Pulse Resp BP Pulse Ox 99.2 F 64 18 133/82 97 02/12/18 11:20 02/12/18 11:20 02/12/18 11:20 02/12/18 11:20 02/12/18 11:20 Height: 5'9 Weight: 193 lbs NPO (# of Hours): MN Pain Scale: 0 - HEENT Pupil (Motor): Pupils equal, EOMI Mallampati: II Oral Opening: Greater than 3 - [employer]ER LOC: Oriented [place] Motor: Normal RUE, Normal LUE, Normal RLE, Normal LLE, Normal Face [employer] Sensory: Normal: RUE, LUE, RLE, LLE, Face - Cardiac Rhythm: Regular Murmur: None JVD: No Carotid Bruit: No - Pulmonary Breath Sounds: bilateral Clear Respiratory Effort: Symmetrical Anesthesia Assess/Plan ASA Score: 3 (HTN CAD) Modified Nas Scale for Level of Consciousness: Cooperative, oriented, and tranquil Anesthetic Plan: Regional, MAC Monitoring Plan: Standard Monitors Recovery Plan: PACU (Discussed SAB, Adductor Canal Block, possible GA, agrees to proceed)
[2018-02-12] MEDS ORDERED: Ethanol\\Acetic Acid\\Na Ace\\Ben 1,000 ML IRRIG.SOLN IR ONE (12:09)
[2018-02-12] MEDS ORDERED: Lidocaine -MPF 1% 5 ML AMPUL ONE (12:16)
--- NOTE | 2018-02-12 12:41 | Anesthesia Procedures ---
Date of Encounter: 02/12/18 Time of Encounter: 12:38 Procedures: Anesthesia - Epidural/Spinal Patient ID/Chart reviewed: Yes Patient examined: Yes Consent Obtained: Yes Supplemental Oxygen: Nasal Cannula Supplemental Oxygen Rate (L/min): 2 Sedation: Versed (mg): 2 Sedation: Fentanyl (mcg): 50 Site Prep: Aseptic Technique, Sterile prep and drape, 0.5% Chlorhexidine/Alcohol Patient position: upright Local Anesthetic: Lidocaine 1% Amount of Local Anesthetic used: 2 Blood: No CSF: Yes Paresthesia: No Spinal Needle Gauge: 25 ([employer]) Spinal Dose: 2ml 0.5% Bupivacaine with 200mcg duramorph Procedure: SAB performed with patient in sitting position viaL L3-L4 on first attempt with no blood or parasthesia. Clear CSF X4 quads. Tolerated well Vitals + FHT's: Vital Signs/O2 Sat/Glucose, Most Recent Temp Pulse Resp BP Pulse Ox 99.2 F 67 16 115/68 99 02/12/18 11:20 02/12/18 12:37 02/12/18 12:37 02/12/18 12:37 02/12/18 12:37 - Nerve Block Procedure Date: 02/12/18 Time: 12:45 Allergies/Adv Reactions: NKDA Pre-op Diagnosis: Right Knee Osteoarthritis Surgical Procedure: Robotic Right TKA Checklist: Correct Patient Identifier, Correct procedure, History checked Correct side: Right Blood Thinner: No Monitor Applied: EKG, BP, Pulse Oximetry Supplemental Oxygen via Nasal Cannula (L/min): 2 Sedation: Versed (mg): 2 Sedation: Fentanyl (mcg): 50 Indication: Post Op Analgesia Pre-op Neuro Deficits: No Block Type: Other (Adductor Canal and IPACK performed with no difficulty) Catheter placed: No Sterile Technique: Yes Ultrasound used: Yes Anatomy identified: Yes Visual spread of Local: Yes Neuro Stimulation: No Blood on Needle Aspiration: No Smooth Injection of Local: Yes Pain with Injection of Local: No Prep: Chlorhexadine Needle: 21 x 100 mm Stimuplex Local: 0.25% Bupivicaine w/Clonidine 20 mcg/cc, Ropivacaine (30ml of Ropivacaine with decadron 8mg used on adductor canal block and 20ml of bupivacaine 0.25% with clonidine 20mcg/ml used for IPACK) Number of Attempts: 1 Complications: None/effective block
[2018-02-12] MEDS ORDERED: *HR* OxyCODONE/APAP 5/325 TABLET PO PRN (13:01)
[2018-02-12] MEDS ORDERED: Ondansetron 4 MG/2 ML VIAL IVP PRN ×2 (13:01→19:15)
[2018-02-12] MEDS ORDERED: *HR* PHENYLEPHRINE 1,000 MCG/10 ML SYRINGE IVP ONE ×2 (13:07→13:58)
[2018-02-12] MEDS ORDERED: EPHEDrine 50 MG/ML VIAL ONE (13:17)
--- NOTE | 2018-02-12 13:53 | Orthopedic Operative Note ---
Date of procedure: 02/12/18 Pre-op diagnosis: Right knee arthritis Post-op diagnosis: same Procedure: Procedure: Right robotic-assisted Total knee replacement Estimated blood loss: 100 cc Hardware: Metal and polyethylene replacement. Press-fit [place] Femur: 4 Tibia:5 PS insert: 9 Patella: 36 Exam Under anesthesia: 40 degree flexion contracture 4 degrees varus as calculated by the robot full flexion and no instability Procedural Notes: Grade 4 arthritic changes tell femoral joint medial compartment. Operative procedure: The patient was brought to the operating room and placed on the operating room table. After general anesthesia was administered the operative knee was examined. Findings were noted in the exam under anesthesia. The operative extremity was prepped and draped in sterile surgical fashion. The patient received IV antibiotics prior to skin incision. A standard midline incision was made centered over the patella. The incision was made through the skin and subcutaneous tissue. A medial parapatellar tendon approach was performed. Care was taken to preserve tissue along the medial aspect of the patella. And to protect the patella tendon. The deep MCL was released off the medial tibia. The infra patella fat pad was excised. The patella was everted and cut was made at the level of the insertion of the quadriceps and patella tendon. The patella was sized to 36 the guide was seated and the lug holes are drilled. Knee was brought into flexion. Patient noted to have grade 4 arthritic changes medial compartment patellofemoral joint. Steinmann pins were placed in the tibia and the femur for the tibial and femoral arrays respectively. Checkpoints were also placed in the tibia and the femur for calculation purposes. The knee including the femur and the tibial registered. Osteophytes , ACL and PCL were excised at this point. Extension and flexion were assessed with a valgus stress components were adjusted on the computer to balance the knee. Femoral cuts were made first with robotic assistance, these included the anterior cut posterior cuts chamfer cuts. Tibial cut was then performed with robotic assistance as well. Bone fragments were removed, as well as the medial and lateral meniscus. The size 5 femoral guide was seated box cut was made lug holes are drilled. The size 5 tibial tray was seated and prepared with the fin cutter. Trial reduction with the 9 TS Rowena revealed extension of 0 degree and 1 degree varus full flexion. No varus valgus instability. Trial reduction revealed excellent patella tracking. All trial components were removed all bony surfaces were irrigated. The Tibia was seated followed by the femur, The selected Rowena size was seated and secured patella. Patient had similar findings for motion and stability. The knee was closed by the PA. The knee was then irrigated out with 2 L of pulse irrigation. The extensor mechanism was closed with #2 FiberWire suture and #2 PDS suture. The subcutaneous tissue was then irrigated and closed deep with #1 PDS suture superficially with 0 PDS suture and skin was closed with zip tie The patient was then placed in a sterile dressing and a postoperative brace extubated and transferred to recovery room in stable condition. Anesthesia: spinal Surgeon: Nick Ibanez Was there an store assistant present: No Estimated blood loss (cc): 100 Condition: stable Disposition: PACU
[2018-02-12] MEDS ORDERED: Propofol 500 MG/50 ML INFUS..BTL ONE (14:04)
--- NOTE | 2018-02-12 14:43 | Anesthesia Evaluation Post Op ---
Date of Encounter: 02/12/18 Time of Encounter: 14:45 - Vital Signs Vital Signs: Vital Signs/O2 Sat/Glucose, Most Current Temp Pulse Resp BP Pulse Ox 02/12/18 14:33 98.6 F 69 16 108/72 96 02/12/18 14:23 98.6 F 74 16 110/69 94 02/12/18 12:37 67 16 115/68 99 02/12/18 12:00 61 16 125/82 98 02/12/18 11:20 99.2 F 64 18 133/82 97 - Lungs Lungs: Clear Ascult./Percussion - Airway Airway: Non-obstructed - Cardiovascular Regular Rate - Mental Status Mental Status: Alert & Oriented, Answers Appropriately - Pain Pain Scale: 0 - Nausea Vomiting Nausea Vomiting: Not Present - Hydration Hydration: Ice chips - Discharge PostOp Status: Transfer Patient to floor
[2018-02-12 15:28] LABS: Hematocrit 36.7 % (37.5-50.1)
[2018-02-12 15:29] LABS: Hemoglobin 12.2 g/dL (12.9-16.9)
--- NOTE | 2018-02-12 15:47 | Physician Discharge Referral ---
<Tarah De Souza Raman - Last Filed: 02/12/18 15:46> Home Health/Hosp Referral Info Transfer to: Home Health Attending Provider: Provider in Charge Post Discharge: PCP - Diagnosis (1) Status post total knee replacement, right Priority: Primary Status: Acute (2) Arthritis of knee, right Priority: Primary Status: Chronic (3) Gout Status: Chronic (4) Rheumatoid arthritis Status: Chronic (5) HTN (hypertension) Status: Chronic - Respiratory Orders Smoking Cessation: Smoking cessation has been advised. For more information, call the [place] Tobacco Quit Line at 7-627-SFNM-NOW. - Activity Activity Orders: Up ad daniel, Ambulate, Chair, Walker - Services Needed Following services are medically necessary services: Nursing, Home Health Aide, Physical Therapy, Occupational Therapy Home Care Orders: Opsite dressing, leave intact until first post-operative visit. If dressing becomes >50% saturated, contact office, remove dressing and place appropriate dressing in its place. Do not allow for dressing to get wet. Zipline in place, plan to remove at post-operative day #14-16. Total Joint Precautions x 6 weeks Apply cold therapy wrap 3-6x/day for 20 minutes at a time. Encourage ambulation throughout the day Use Incentive spirometer 10x/hour. Elevate affected extremity above heart as tolerated. Brace: Wear knee immobilizer at night until first post-operative appt. - Transfer Medications Home Medications: Allopurinol [Zyloprim 300 MG] 450 mg PO DAILY 05/17/17 [History] Irbesartan [Avapro] 300 mg PO DAILY 05/17/17 [History] Potassium Chloride [K-Tab ER] 20 meq PO DAILY 05/17/17 [History] Metoprolol [Lopressor] 50 mg PO BID #60 tablet 05/18/17 [Rx] Triamterene/HCTZ 37.5/25mg [Dyazide] 1 each PO DAILY #30 tablet 05/18/17 [Rx] Aspirin Enteric Coated [Aspirin EC] 325 mg PO BID #20 tablet. 02/11/18 [Rx] OxyCODONE Immed Rel [Roxicodone 5 MG] 5 mg PO Q6HR PRN 7 Days #28 tablet [Rx] Leflunomide [Leflunomide] 20 mg PO DAILY 02/12/18 [History] Allergies/Adverse Reactions: 3 Allergy/AdvReac Type Severity Reaction Status Date / Time No Known Allergies Allergy Verified 02/12/18 11:41 Certification: Further, I certify that my clinical findings support that this patient is homebound (i.e. absences from home require considerable and taxing effort and are for medical reasons or roman catholic services or infrequently or short duration when for other reasons) because: Homebound Reason: Post-surgery restriction and or conditions limit ability to leave home Attestation: My signature below is to certify that this patient is under my care and that I, or nurse practitioner, or a physician's reproductive healthcare assistant working with me, has a face-to -face encounter with this patient. <Nick Ibanez - Last Filed: 02/15/18 08:40> - Diagnosis (1) Arthritis of knee, right Status: Chronic (2) Gout Status: Chronic (3) Rheumatoid arthritis Status: Chronic (4) Status post total knee replacement, right Status: Acute (5) HTN (hypertension) Status: Chronic (6) Postoperative urinary retention Status: Acute (7) Acute blood loss anemia Status: Acute - Respiratory Orders Smoking Cessation: Smoking cessation has been advised. For more information, call the [place] Tobacco Quit Line at 1-302-NEJW-NOW. Certification: Further, I certify that my clinical findings support that this patient is homebound (i.e. absences from home require considerable and taxing effort and are for medical reasons or roman catholic services or infrequently or short duration when for other reasons) because: Attestation: My signature below is to certify that this patient is under my care and that I, or nurse practitioner, or a physician's reproductive healthcare assistant working with me, has a face-to -face encounter with this patient.
[2018-02-12] MEDS ORDERED: *HR* Enoxaparin 30 MG/0.3 ML SYRINGE SQ SCH (18:00)
[2018-02-12] MEDS ORDERED: traMADol 50 MG TABLET PO PRN (19:15)
[2018-02-12] MEDS ORDERED: MOM Conc 10 ML UD.LIQ PO PRN (19:15)
[2018-02-12] MEDS ORDERED: Temazepam 15 MG CAPSULE PO PRN (19:15)
[2018-02-12] MEDS ORDERED: Naloxone 0.4 MG/ML INJ IVP PRN (19:15)
[2018-02-12] MEDS ORDERED: Sennosides 8.6 MG TABLET PO PRN (19:15)
[2018-02-12] MEDS: *HR* OxyCODONE/APAP 5/325 TABLET PO PRN (20:12)
[2018-02-13] MEDS: *HR* OxyCODONE/APAP 5/325 TABLET PO PRN ×4 (00:31→18:10)
[2018-02-13 02:51] LABS: Hematocrit 31.2 % (37.5-50.1)
[2018-02-13 02:52] LABS: Hemoglobin 10.6 g/dL (12.9-16.9)
[2018-02-13 03:11] LABS: BUN/Creatinine Ratio 15 (6-26); Blood Urea Nitrogen 12 mg/dL (6-20); Calcium 8.4 mg/dL (8.6-10.3); Carbon Dioxide 26 mEq/L (23-29); Chloride 103 mEq/L (98-107); Glucose 138 mg/dL (70-105); Osmolality,Calculated 282 (280-300); Potassium 3.8 mEq/L (3.5-5.1); Sodium 135 mEq/L (136-145); eGFR For Non-African Americans > 60 (> 60)
[2018-02-13] MEDS: *HR* Enoxaparin 30 MG/0.3 ML SYRINGE SQ SCH ×2 (05:21→18:10)
--- NOTE | 2018-02-13 07:02 | Orthopedics Progress Note ---
Date of Encounter: 02/13/18 Time of Encounter: 07:01 - Assessment and Plan (1) Arthritis of knee, right Current Visit: No Status: Chronic (2) Gout Current Visit: No Status: Chronic Qualifiers: Gout site: unspecified site Gout etiology: unspecified cause Chronicity: unspecified Qualified Code(s): M10.9 - Gout, unspecified (3) Rheumatoid arthritis Current Visit: No Status: Chronic Qualifiers: Rheumatoid arthritis location: unspecified site Rheumatoid factor presence : unspecified presence Qualified Code(s): M06.9 - Rheumatoid arthritis, unspecified (4) Status post total knee replacement, right Current Visit: No Status: Acute (5) HTN (hypertension) Current Visit: No Status: Chronic Qualifiers: Hypertension type: unspecified Qualified Code(s): I10 - Essential (primary ) hypertension (6) Postoperative urinary retention Current Visit: Yes Status: Acute Subjective Interval history: Patient was seen this morning doing well without complaints. Afebrile vital signs stable. Operative extremity: Neurovascularly intact Dressing clean dry and intact Calves nontender Assessment and plan: Continue with postoperative care Hematocrit 31 patient with postoperative urinary retention history of this postsurgical. Continue with catheterization will require Nichole potentially Objective Vital signs: Vital Signs Temp Pulse Resp BP Pulse Ox 02/13/18 03:23 98.5 F 60 127/77 98 02/12/18 22:45 97.9 F 60 18 114/66 96 02/12/18 19:38 97.6 F 74 16 123/62 97 02/12/18 17:30 97.4 F L 60 118/80 02/12/18 16:30 97.7 F 61 18 123/81 02/12/18 15:30 97.5 F L 61 20 109/69 02/12/18 15:15 97.5 F L 59 20 115/72 02/12/18 14:53 98.1 F 61 16 100/72 98 02/12/18 14:43 97.8 F 68 16 107/73 97 02/12/18 14:33 98.6 F 69 16 108/72 96 02/12/18 14:23 98.6 F 74 16 110/69 94 02/12/18 12:37 67 16 115/68 99 02/12/18 12:00 61 16 125/82 98 02/12/18 11:20 99.2 F 64 18 133/82 97 Intake and Output 02/12/18 02/12/18 02/13/18 15:59 23:59 07:59 Intake Total 100 / 100 1450 / 1450 Output Total 100 / 100 800 / 800 1000 / 1000 Balance -100 / -100 -700 / -700 450 / 450 Intake: IV Fluids 100 / 100 1100 / 1100 Lactated Ringers 1,000 ML @ 25 1000 / 1000 mls/hr IVC .Q24H GLENDA Rx#: [id number] Ancef 2,000 MG In 0.9 % Sodium 100 / 100 100 / 100 Chloride 100 ML @ 200 mls/hr IVPB Q8HR GLENDA Rx#:[id number] Oral 0 / 0 350 / 350 Output: Urine 0 / 0 Estimated Blood Loss 100 / 100 Straight Cath 800 / 800 1000 / 1000 Other: Weight 87.543 kg - Labs CBC & BMP: 02/13/18 02:02 02/13/18 02:02 Labs: Abnormal lab results Hgb 10.6 g/dL (12.9-16.9) L D 02/13/18 02:02 Hct 31.2 % (37.5-50.1) L 02/13/18 02:02 Sodium 135 mEq/L (136-145) L 02/13/18 02:02 Glucose 138 mg/dL (70-105) H 02/13/18 02:02 Calcium 8.4 mg/dL (8.6-10.3) L 02/13/18 02:02 Consult Discharge Plan - Plan Referrals: Jhon Syed DO [Primary Care Provider] -
[2018-02-13] MEDS: (Leflunomide [Leflunomide] 20 MG) PO SCH (08:29)
--- NOTE | 2018-02-13 20:50 | Event Note ---
Date of Encounter: 02/13/18 Time of Encounter: 12:30 PCR - POD#1 s/p Right robotic-assisted Total knee replacement 02/12/18 Patient seen at bedside, without complaints. A&O x 3 Afebrile, vital signs stable, lower BP at 106/65 dressings c/d/i with no visible drainage or erythema. no calf tenderness to palpation good dorsiflexion of foot, grossly NV intact. Labs reviewed. H/H 10.6/31.2- stable, asymptomatic Pain control: adequate Participating in PT. Was on hold this morning due to lower BP but much improved at afternoon and participated in therapy this afternoon All questions and concerns addressed. Chronic h/o urinary retension postoperatively. continue with catheterization. He states he has voided a small amount this morning. If no further urination this afternoon then will do bladder scan and possible fleming placement. Plan to consult urology if so. Educated on use of incentive spirometer. Encouraged ambulation and proper hydration. Patient educated on post-operative restrictions and post-operative care. Assessment and plan: Continue with postoperative care Discharge plan: ECF, accepted at [facility]
[2018-02-13] MEDS: *HR* OxyCODONE Immed Rel 5 MG TABLET PO PRN (21:17)
[2018-02-14] MEDS: *HR* OxyCODONE Immed Rel 5 MG TABLET PO PRN ×2 (01:47→09:44)
[2018-02-14 01:56] LABS: Hematocrit 29.1 % (37.5-50.1); Hemoglobin 9.8 g/dL (12.9-16.9)
[2018-02-14 02:10] LABS: BUN/Creatinine Ratio 16 (6-26); Blood Urea Nitrogen 11 mg/dL (6-20); Calcium 8.4 mg/dL (8.6-10.3); Carbon Dioxide 26 mEq/L (23-29); Chloride 102 mEq/L (98-107); Glucose 135 mg/dL (70-105); Osmolality,Calculated 279 (280-300); Potassium 3.5 mEq/L (3.5-5.1); Sodium 134 mEq/L (136-145); eGFR For Non-African Americans > 60 (> 60)
[2018-02-14] MEDS: *HR* OxyCODONE/APAP 5/325 TABLET PO PRN ×2 (05:12→21:07)
[2018-02-14] MEDS: *HR* Enoxaparin 30 MG/0.3 ML SYRINGE SQ SCH ×2 (05:12→18:50)
--- NOTE | 2018-02-14 09:12 | Orthopedics Progress Note ---
Date of Encounter: 02/14/18 Time of Encounter: 09:11 - Assessment and Plan (1) Arthritis of knee, right Current Visit: No Status: Chronic (2) Gout Current Visit: No Status: Chronic Qualifiers: Gout site: unspecified site Gout etiology: unspecified cause Chronicity: unspecified Qualified Code(s): M10.9 - Gout, unspecified (3) Rheumatoid arthritis Current Visit: No Status: Chronic Qualifiers: Rheumatoid arthritis location: unspecified site Rheumatoid factor presence : unspecified presence Qualified Code(s): M06.9 - Rheumatoid arthritis, unspecified (4) Status post total knee replacement, right Current Visit: No Status: Acute (5) HTN (hypertension) Current Visit: No Status: Chronic Qualifiers: Hypertension type: unspecified Qualified Code(s): I10 - Essential (primary ) hypertension (6) Postoperative urinary retention Current Visit: Yes Status: Acute (7) Acute blood loss anemia Current Visit: Yes Status: Acute Subjective Interval history: Patient was seen this morning doing well without complaints. Afebrile vital signs stable. Operative extremity: Neurovascularly intact Dressing clean dry and intact Calves nontender Assessment and plan: Continue with postoperative care Hematocrit 29 Objective Vital signs: Vital Signs Temp Pulse Resp BP Pulse Ox 02/14/18 06:50 98.9 F 92 17 163/90 95 02/14/18 03:43 98.8 F 72 141/84 98 02/13/18 23:09 99.4 F 84 159/82 97 02/13/18 19:13 98.9 F 82 16 160/76 95 02/13/18 15:55 98.6 F 73 16 136/76 97 02/13/18 11:50 98.9 F 58 17 133/80 100 Intake and Output 02/13/18 02/14/18 02/14/18 23:59 07:59 15:59 Output Total 400 / 400 Balance -400 / -400 Output: Urine 400 / 400 Other: # Voids 1 - Labs CBC & BMP: 02/14/18 01:19 02/14/18 01:19 Labs: Abnormal lab results Hgb 9.8 g/dL (12.9-16.9) L 02/14/18 01:19 Hct 29.1 % (37.5-50.1) L 02/14/18 01:19 Sodium 134 mEq/L (136-145) L 02/14/18 01:19 Creatinine 0.67 mg/dL (0.70-1.30) L 02/14/18 01:19 Glucose 135 mg/dL (70-105) H 02/14/18 01:19 POC Glucose 145 mg/dL (70-99) H 02/13/18 09:02 Calculated Osmolality 279 (280-300) L 02/14/18 01:19 Calcium 8.4 mg/dL (8.6-10.3) L 02/14/18 01:19 Consult Discharge Plan - Plan Referrals: Jhon Syed DO [Primary Care Provider] -
[2018-02-14] MEDS: (Leflunomide [Leflunomide] 20 MG) PO SCH (09:46)
--- NOTE | 2018-02-14 17:49 | Event Note ---
Date of Encounter: 02/14/18 Time of Encounter: 12:30 PCR - POD#2 s/p Right robotic-assisted Total knee replacement 02/12/18 Patient seen at bedside, without complaints. A&O x 3 Afebrile, vital signs stable, BP improved from yesterday dressings c/d/i with no visible drainage or erythema. no calf tenderness to palpation good dorsiflexion of foot, grossly NV intact. Labs reviewed. H/H 9.8/29.1- stable, asymptomatic Pain control: adequate Participating in PT. All questions and concerns addressed. Chronic h/o urinary retension postoperatively.Patient was able to urinate overnight and this morning. no longer requiring cath Educated on use of incentive spirometer. Encouraged ambulation and proper hydration. Patient educated on post-operative restrictions and post-operative care. Assessment and plan: Continue with postoperative care Discharge plan: [facility], accepted at [place] 02/15
[2018-02-15] MEDS: *HR* Enoxaparin 30 MG/0.3 ML SYRINGE SQ SCH ×2 (05:06→18:41)
[2018-02-15] MEDS: (Leflunomide [Leflunomide] 20 MG) PO SCH (08:29)
--- NOTE | 2018-02-15 08:40 | Orthopedics Progress Note ---
Date of Encounter: 02/15/18 Time of Encounter: 08:40 - Assessment and Plan (1) Arthritis of knee, right Current Visit: No Status: Chronic (2) Gout Current Visit: No Status: Chronic Qualifiers: Gout site: unspecified site Gout etiology: unspecified cause Chronicity: unspecified Qualified Code(s): M10.9 - Gout, unspecified (3) Rheumatoid arthritis Current Visit: No Status: Chronic Qualifiers: Rheumatoid arthritis location: unspecified site Rheumatoid factor presence : unspecified presence Qualified Code(s): M06.9 - Rheumatoid arthritis, unspecified (4) Status post total knee replacement, right Current Visit: No Status: Acute (5) HTN (hypertension) Current Visit: No Status: Chronic Qualifiers: Hypertension type: unspecified Qualified Code(s): I10 - Essential (primary ) hypertension (6) Postoperative urinary retention Current Visit: Yes Status: Acute (7) Acute blood loss anemia Current Visit: Yes Status: Acute Subjective Interval history: Patient was seen this morning doing well without complaints. Afebrile vital signs stable. Operative extremity: Neurovascularly intact Dressing clean dry and intact Calves nontender Assessment and plan: Continue with postoperative care Discharged today Objective Vital signs: Vital Signs Temp Pulse Resp BP Pulse Ox 02/15/18 06:47 97.5 F L 81 18 154/83 99 02/15/18 03:55 98.7 F 75 17 161/90 97 02/15/18 00:26 99.2 F 71 17 148/84 97 02/14/18 19:26 99.1 F 81 17 155/83 97 02/14/18 12:46 128/71 02/14/18 11:54 98.1 F 92 18 159/88 97 Intake and Output 02/14/18 02/15/18 02/15/18 23:59 07:59 15:59 Output Total 200 / 200 Balance -200 / -200 Output: Urine 200 / 200 Other: Weight 85.7 kg Patient Weight 02/15/18 23:59 Weight 85.7 kg - Labs CBC & BMP: 02/14/18 01:19 02/14/18 01:19 Labs: Abnormal lab results Hgb 9.8 g/dL (12.9-16.9) L 02/14/18 01:19 Hct 29.1 % (37.5-50.1) L 02/14/18 01:19 Sodium 134 mEq/L (136-145) L 02/14/18 01:19 Creatinine 0.67 mg/dL (0.70-1.30) L 02/14/18 01:19 Glucose 135 mg/dL (70-105) H 02/14/18 01:19 POC Glucose 145 mg/dL (70-99) H 02/13/18 09:02 Calculated Osmolality 279 (280-300) L 02/14/18 01:19 Calcium 8.4 mg/dL (8.6-10.3) L 02/14/18 01:19 Consult Discharge Plan - Plan Referrals: Jhon Syed DO [Primary Care Provider] -
[2018-02-15 12:34] LABS: Basophils % 0.2 %; Eosinophils # 0.2 K/mcL (0.0-0.6); Eosinophils % 1.4 %; Hematocrit 35.3 % (37.5-50.1); Immature Granulocytes % 0.9 % (0-4); Lymphocytes # 1.4 K/mcL (0.6-4.6); Lymphocytes % 8.9 %; Mean Corpuscular Hemoglobin 29.6 pg (28.0-33.3); Mean Corpuscular Volume 87.2 fL (83.0-100.0); Mean Platelet Volume 9.2 fL (9.4-12.4); Monocytes % 14.5 %; Neutrophils # 11.5 K/mcL (1.6-8.9); Platelet Count 355 K/mcL (140-400); Red Blood Count 4.05 M/mcL (4.19-5.50); Red Cell Distribution Width 14.2 % (11.5-14.5); Segmented Neutrophils % 74.1 %
[2018-02-15 12:37] LABS: Monocytes # 2.3 K/mcL (0.0-1.3)
[2018-02-15 12:56] LABS: BUN/Creatinine Ratio 15 (6-26); Blood Urea Nitrogen 11 mg/dL (6-20); Calcium 9.5 mg/dL (8.6-10.3); Carbon Dioxide 30 mEq/L (23-29); Chloride 99 mEq/L (98-107); Glucose 118 mg/dL (70-105); Osmolality,Calculated 282 (280-300); Potassium 3.6 mEq/L (3.5-5.1); Sodium 136 mEq/L (136-145); eGFR For Non-African Americans > 60 (> 60)
[2018-02-15 16:03] VITALS: BP 139/82
--- NOTE | 2018-02-15 16:37 | Physician Discharge Referral ---
ExtendedCare Referral Info Transfer To: [facility] - Provider in Charge: Provider in Charge after Transfer: PCP Institutional Level of Care: Skilled - Diagnosis (1) Status post total knee replacement, right Priority: Primary Status: Acute (2) Arthritis of knee, right Priority: Primary Status: Chronic (3) Gout Priority: Secondary Status: Chronic (4) Rheumatoid arthritis Priority: Secondary Status: Chronic (5) HTN (hypertension) Priority: Secondary Status: Chronic (6) Acute blood loss anemia Priority: Secondary Status: Acute (7) Postoperative urinary retention Priority: Secondary Status: Acute Expected Duration of Placement: < 30 days Prognosis: Good Aware of Diagnosis: Patient Aware of Prognosis: Patient - Transfer Medications Prescriptions: PredniSONE [Deltasone] 20 mg PO DAILY #12 tablet Home Medications: Allopurinol [Zyloprim 300 MG] 450 mg PO DAILY 05/17/17 [History] Irbesartan [Avapro] 300 mg PO DAILY 05/17/17 [History] Potassium Chloride [K-Tab ER] 20 meq PO DAILY 05/17/17 [History] Metoprolol [Lopressor] 50 mg PO BID #60 tablet 05/18/17 [Rx] Triamterene/HCTZ 37.5/25mg [Dyazide] 1 each PO DAILY #30 tablet 05/18/17 [Rx] Aspirin Enteric Coated [Aspirin EC] 325 mg PO BID #20 tablet. 02/11/18 [Rx] OxyCODONE Immed Rel [Roxicodone 5 MG] 5 mg PO Q6HR PRN 7 Days #28 tablet [Rx] Leflunomide 20 mg PO DAILY 02/12/18 [History] PredniSONE [Deltasone] 20 mg PO DAILY #12 tablet 02/15/18 [Rx] Allergies/Adverse Reactions: 3 Allergy/AdvReac Type Severity Reaction Status Date / Time No Known Allergies Allergy Verified 02/12/18 11:41 - Respiratory Orders None Smoking Cessation: Smoking cessation has been advised. For more information, call the [place] Tobacco Quit Line at 5-629-ZMCV-NOW. - Advance Directives Code Status: Full Code - Mobility Orders Chair, Ambulate - Rehabiliation Orders Rehab Potential: Good Rehab Orders: ROM Exercises, Evaluation for Physical Therapy, Evaluation for Occupational Therapy - Treatments List/Other: Opsite dressing, leave intact until first post-operative visit. If dressing becomes >50% saturated, contact office, remove dressing and place appropriate dressing in its place. Do not allow for dressing to get wet. Zipline/[place] in place, plan to remove at post-operative day #14-16. Total Joint Precautions x 6 weeks Apply cold therapy wrap 3-6x/day for 20 minutes at a time. Encourage ambulation throughout the day Use Incentive spirometer 10x/hour. Elevate affected extremity above heart as tolerated. Brace: Wear knee immobilizer at night until first post-operative appt. ~ - Diet Orders Regular CERTIFICATION: I certify that the transfer of the above named patient to an Extended Care Facility is necessary for the continuing treatment of the diagnosis listed. The above information is true and accurate reflection of patient's current condition. Confidential - Redisclosure prohibited without a patient's written consent.
[2018-02-15] MEDS ORDERED: predniSONE 20 MG TABLET PO ONE (17:36)
== END 2018-02-15 20:00 | disposition other institution (70) | DRG 470 ==
LOC: SAMDAY 10:54 → 3NENU 16:36
PROVIDERS: ADMIT Orthopaedic Surgery; ATTEND Orthopaedic Surgery

== ENCOUNTER 2020-03-26 19:51 | Observation (INO) ==
[2020-03-26] MEDS ORDERED: Aspirin 81 MG TAB.CHEW PO ONE (20:03)
[2020-03-26] MEDS: Nitroglycerin 0.4 MG TAB.SUBL SL PRN ×2 (20:38→21:08)
[2020-03-26 20:54] LABS: Basophils % 0.3 %; Eosinophils # 0.1 K/mcL (0.0-0.6); Hematocrit 45.5 % (37.5-50.1); Hemoglobin 15.4 g/dL (12.9-16.9); Immature Granulocytes % 1.3 % (0-4); Lymphocytes # 2.8 K/mcL (0.6-4.6); Mean Corpuscular HGB Conc 33.8 g/dL (31.6-35.5); Mean Corpuscular Volume 91.7 fL (83.0-100.0); Mean Platelet Volume 9.4 fL (9.4-12.4); Monocytes # 1.4 K/mcL (0.0-1.3); Monocytes % 13.6 %; Neutrophils # 5.9 K/mcL (1.6-8.9); Platelet Count 277 K/mcL (140-400); Red Blood Count 4.96 M/mcL (4.19-5.50); Red Cell Distribution Width 14.1 % (11.5-14.5); Segmented Neutrophils % 56.8 %; White Blood Count 10.4 K/mcL (4.3-11.1)
[2020-03-26 21:05] LABS: Prothrombin Time 11.5 Seconds (9.4-12.1)
[2020-03-26 21:07] LABS: Activated Partial Thrombo Time 34.1 Seconds (26.0-36.0)
[2020-03-26 21:16] LABS: BUN/Creatinine Ratio 18 (6-26); Blood Urea Nitrogen 15 mg/dL (6-20); Calcium 9.6 mg/dL (8.6-10.3); Carbon Dioxide 27 mEq/L (23-29); Chloride 100 mEq/L (98-107); Glucose 109 mg/dL (70-105); Osmolality,Calculated 285 (280-300); Potassium 3.2 mEq/L (3.5-5.1); Sodium 137 mEq/L (136-145); Troponin I < 0.03 ng/mL (< 0.04); eGFR For African Americans > 60 (> 60); eGFR For Non-African Americans > 60 (> 60)
[2020-03-26] MEDS ORDERED: Potassium Effervescent 25 MEQ TABLET.EFF PO ONE (22:26)
[2020-03-26] MEDS ORDERED: Ondansetron 4 MG/2 ML VIAL IVP PRN (22:29)
[2020-03-26] MEDS ORDERED: Naloxone 0.4 MG/ML INJ IVP PRN (22:29)
[2020-03-26] MEDS ORDERED: Perflutren Lipid Microsphere 1.3 ML in 0.9 % Sodium Chloride 8.7 ML IVP PRN (22:34)
[2020-03-26] MEDS ORDERED: Potassium Chloride 40 MEQ, Lidocaine 1% 2 ML in D5% in Water 500 ML IVPB ONE (22:45)
[2020-03-27 02:49] LABS: Basophils % 0.3 %; Eosinophils # 0.1 K/mcL (0.0-0.6); Eosinophils % 0.8 %; Hematocrit 43.3 % (37.5-50.1); Hemoglobin 14.1 g/dL (12.9-16.9); Lymphocytes # 2.5 K/mcL (0.6-4.6); Lymphocytes % 26.5 %; Mean Corpuscular HGB Conc 32.6 g/dL (31.6-35.5); Mean Corpuscular Hemoglobin 29.5 pg (28.0-33.3); Mean Corpuscular Volume 90.6 fL (83.0-100.0); Mean Platelet Volume 9.3 fL (9.4-12.4); Monocytes # 1.2 K/mcL (0.0-1.3); Monocytes % 12.4 %; Neutrophils # 5.6 K/mcL (1.6-8.9); Platelet Count 232 K/mcL (140-400); Red Blood Count 4.78 M/mcL (4.19-5.50); Red Cell Distribution Width 14.2 % (11.5-14.5); White Blood Count 9.5 K/mcL (4.3-11.1)
[2020-03-27 02:50] LABS: Prothrombin Time 12.1 Seconds (9.4-12.1)
[2020-03-27 03:10] LABS: Alanine Aminotransferase 45 Units/L (7-52); Albumin 4.2 g/dL (3.5-5.7); Albumin/Globulin Ratio 1.8 (1.1-2.2); Alkaline Phosphatase 59 Units/L (34-104); Aspartate Amino Transferase 25 Units/L (13-39); BUN/Creatinine Ratio 18 (6-26); Bilirubin,Total 0.4 mg/dL (0.3-1.0); Blood Urea Nitrogen 14 mg/dL (6-20); Carbon Dioxide 26 mEq/L (23-29); Chloride 102 mEq/L (98-107); Chol/HDL Ratio 6.9 (0-4.9); Cholesterol 207 mg/dL (< 200); Globulin 2.4 g/dL (2.4-3.5); Glucose 174 mg/dL (70-105); HDL Cholesterol 30 mg/dL (40-59); LDL Cholesterol,Calculated 138 mg/dL (< 100); Magnesium 2.1 mg/dL (1.6-2.6); Osmolality,Calculated 287 (280-300); Potassium 3.5 mEq/L (3.5-5.1); Sodium 136 mEq/L (136-145); Total Protein 6.6 g/dL (6.4-8.9); Triglycerides 195 mg/dL (< 150); Troponin I < 0.03 ng/mL (< 0.04); eGFR For African Americans > 60 (> 60); eGFR For Non-African Americans > 60 (> 60)
[2020-03-27] MEDS: *HR* Enoxaparin 40 MG/0.4 ML SYRINGE SQ SCH (05:08)
[2020-03-27] MEDS ORDERED: Regadenoson 0.4 MG/5 ML SYRINGE IVP ONE (06:23)
[2020-03-27] MEDS: allopurinoL 300 MG TABLET PO SCH (10:23)
[2020-03-27] MEDS: Leflunomide [Arava] 20 MG PO SCH (11:23)
[2020-03-27] MEDS: cloNIDine HCL 0.1 MG TABLET PO SCH (19:50)
[2020-03-27] MEDS: Metoprolol 100 MG TABLET PO SCH (19:50)
[2020-03-28 04:12] LABS: BUN/Creatinine Ratio 18 (6-26); Blood Urea Nitrogen 16 mg/dL (6-20); Calcium 9.8 mg/dL (8.6-10.3); Carbon Dioxide 27 mEq/L (23-29); Chloride 101 mEq/L (98-107); Glucose 108 mg/dL (70-105); Osmolality,Calculated 282 (280-300); Potassium 3.8 mEq/L (3.5-5.1); Sodium 135 mEq/L (136-145); eGFR For African Americans > 60 (> 60); eGFR For Non-African Americans > 60 (> 60)
[2020-03-28] MEDS: *HR* Enoxaparin 40 MG/0.4 ML SYRINGE SQ SCH (05:07)
[2020-03-28] MEDS: Metoprolol 100 MG TABLET PO SCH (08:54)
[2020-03-28] MEDS: allopurinoL 300 MG TABLET PO SCH (08:54)
[2020-03-28] MEDS: cloNIDine HCL 0.1 MG TABLET PO SCH ×2 (08:54→14:09)
[2020-03-28] MEDS: Leflunomide [Arava] 20 MG PO SCH (08:55)
[2020-03-28] MEDS ORDERED: Cyanocobalamin (B-12) 1,000 MCG TABLET PO SCH (09:00)
[2020-03-28] MEDS ORDERED: Ascorbic Acid 500 MG TABLET PO SCH (09:00)
[2020-03-28] MEDS ORDERED: Multivit/Ca/Min/Fe/FA 1 TAB TABLET PO SCH (09:00)
[2020-03-28] MEDS ORDERED: Cholecalciferol (D-3) 1,000 UNIT (25MCG) TABLET PO SCH (09:00)
[2020-03-28 16:01] VITALS: BP 155/86
== END 2020-03-28 18:00 | disposition home or self-care (01) ==
LOC: 3BNU 19:51 → EMEROOARM 19:51 → 3BNU 22:54
PROVIDERS: ADMIT Internal Medicine; ATTEND Internal Medicine

== ENCOUNTER 2020-10-18 19:49 | Observation (INO) ==
[2020-10-18] MEDS ORDERED: Aspirin 325 MG TABLET PO ONE (20:41)
[2020-10-18 20:50] LABS: Basophils % 0.3 %; Eosinophils # 0.1 K/mcL (0.0-0.6); Hematocrit 44.3 % (37.5-50.1); Hemoglobin 14.6 g/dL (12.9-16.9); Lymphocytes # 1.5 K/mcL (0.6-4.6); Lymphocytes % 10.5 %; Mean Corpuscular Hemoglobin 29.6 pg (28.0-33.3); Mean Corpuscular Volume 89.7 fL (83.0-100.0); Mean Platelet Volume 9.7 fL (9.4-12.4); Monocytes # 1.8 K/mcL (0.0-1.3); Monocytes % 12.2 %; Neutrophils # 10.8 K/mcL (1.6-8.9); Platelet Count 292 K/mcL (140-400); Red Blood Count 4.94 M/mcL (4.19-5.50); Red Cell Distribution Width 14.3 % (11.5-14.5); White Blood Count 14.3 K/mcL (4.3-11.1)
[2020-10-18] MEDS: Nitroglycerin 0.4 MG TAB.SUBL SL PRN (20:55)
[2020-10-18 21:02] LABS: Alanine Aminotransferase 23 Units/L (7-52); Albumin 4.6 g/dL (3.5-5.7); Albumin/Globulin Ratio 1.7 (1.1-2.2); Alkaline Phosphatase 71 Units/L (34-104); Aspartate Amino Transferase 20 Units/L (13-39); BUN/Creatinine Ratio 16 (6-26); Bilirubin,Total 0.5 mg/dL (0.3-1.0); Blood Urea Nitrogen 16 mg/dL (6-20); Calcium 9.7 mg/dL (8.6-10.3); Carbon Dioxide 24 mEq/L (23-29); Chloride 103 mEq/L (98-107); Globulin 2.7 g/dL (2.4-3.5); Glucose 105 mg/dL (70-105); Osmolality,Calculated 286 (280-300); Potassium 3.6 mEq/L (3.5-5.1); Sodium 137 mEq/L (136-145); Total Protein 7.3 g/dL (6.4-8.9); eGFR For African Americans > 60 (> 60); eGFR For Non-African Americans > 60 (> 60)
[2020-10-18 21:03] LABS: Troponin I < 0.03 ng/mL (< 0.04)
[2020-10-19] MEDS ORDERED: Perflutren Lipid Microsphere 1.3 ML in 0.9 % Sodium Chloride 8.7 ML IVP PRN (00:20)
[2020-10-19] MEDS ORDERED: Ondansetron 4 MG/2 ML VIAL IVP PRN (00:27)
[2020-10-19] MEDS ORDERED: Naloxone 0.4 MG/ML INJ IVP PRN (00:27)
[2020-10-19] MEDS ORDERED: Acetaminophen 325 MG TABLET PO PRN (00:27)
[2020-10-19] MEDS: Morphine Sulfate 2 MG/ML SYRINGE IVP PRN ×2 (00:37→04:19)
[2020-10-19 01:58] LABS: Hematocrit 44.7 % (37.5-50.1); Hemoglobin 14.7 g/dL (12.9-16.9); Mean Corpuscular HGB Conc 32.9 g/dL (31.6-35.5); Mean Corpuscular Hemoglobin 29.3 pg (28.0-33.3); Mean Corpuscular Volume 89.2 fL (83.0-100.0); Mean Platelet Volume 9.3 fL (9.4-12.4); Platelet Count 233 K/mcL (140-400); Red Blood Count 5.01 M/mcL (4.19-5.50); Red Cell Distribution Width 14.3 % (11.5-14.5); White Blood Count 13.8 K/mcL (4.3-11.1)
[2020-10-19 02:09] LABS: INR 1.2; Prothrombin Time 13.7 Seconds (9.4-12.1)
[2020-10-19 02:19] LABS: Bilirubin,Urine Negative (Negative); Blood,Urine Negative (Negative); Clarity,Urine Clear (Clear); Color,Urine Colorless (Yellow); Glucose,Urine (UA) Normal (Normal); Ketones,Urine Negative (Negative); Leukocyte Esterase,Urine Negative (Negative); Nitrite,Urine Negative (Negative); PH,Urine 6.5 pH Units (5.0-8.0); Protein,Urine Negative (Neg-Trace); Specific Gravity,Urine 1.011 (1.010-1.025); Urobilinogen,Urine Normal (Normal)
[2020-10-19] MEDS ORDERED: Isovue-370 500 ML BOTTLE IVP ONE (02:19)
[2020-10-19 02:20] LABS: BUN/Creatinine Ratio 15 (6-26); Blood Urea Nitrogen 13 mg/dL (6-20); Calcium 9.4 mg/dL (8.6-10.3); Carbon Dioxide 25 mEq/L (23-29); Chloride 105 mEq/L (98-107); Chol/HDL Ratio 6.3 (0-4.9); Cholesterol 202 mg/dL (< 200); Glucose 113 mg/dL (70-105); HDL Cholesterol 32 mg/dL (40-59); LDL Cholesterol,Calculated 140 mg/dL (< 100); Magnesium 2.2 mg/dL (1.6-2.6); Osmolality,Calculated 287 (280-300); Potassium 3.3 mEq/L (3.5-5.1); Sodium 138 mEq/L (136-145); Triglycerides 150 mg/dL (< 150); eGFR For African Americans > 60 (> 60); eGFR For Non-African Americans > 60 (> 60)
[2020-10-19] MEDS: Nitroglycerin 0.4 MG TAB.SUBL SL PRN (02:22)
[2020-10-19 02:43] LABS: Estimated Average Glucose 123 mg/dl; Hemoglobin A1C 5.9 %
[2020-10-19 04:35] VITALS: BP 163/90
[2020-10-19] MEDS ORDERED: *HR* Heparin 5,000 UNIT/ML VIAL SQ SCH (06:00)
[2020-10-19] MEDS ORDERED: Aspirin Enteric Coated 81 MG Tablet PO SCH (09:00)
== END 2020-10-19 13:36 | disposition home or self-care (01) ==
LOC: 3ANU 19:49 → EMEROOARM 19:49 → SUATTDRO 22:23 → 3ANU 23:04
PROVIDERS: ADMIT Internal Medicine; ATTEND Student in an Organized Health Care Education/Training Program

== ENCOUNTER 2021-11-29 11:02 | Inpatient (IN) ==
[2021-11-29] MEDS ORDERED: Aspirin 325 MG TABLET PO ONE (11:16)
[2021-11-29 11:42] LABS: Basophils % 0.3 %; Eosinophils # 0.2 K/mcL (0.0-0.6); Eosinophils % 1.5 %; Hematocrit 44.2 % (37.5-50.1); Hemoglobin 15.2 g/dL (12.9-16.9); Immature Granulocytes % 0.7 % (0-4); Lymphocytes # 1.1 K/mcL (0.6-4.6); Lymphocytes % 11.4 %; Mean Corpuscular HGB Conc 34.4 g/dL (31.6-35.5); Mean Corpuscular Hemoglobin 30.2 pg (28.0-33.3); Mean Corpuscular Volume 87.7 fL (83.0-100.0); Mean Platelet Volume 8.7 fL (9.4-12.4); Monocytes % 10.4 %; Neutrophils # 7.3 K/mcL (1.6-8.9); Platelet Count 196 K/mcL (140-400); Red Blood Count 5.04 M/mcL (4.19-5.50); Red Cell Distribution Width 13.9 % (11.5-14.5); Segmented Neutrophils % 75.7 %; White Blood Count 9.7 K/mcL (4.3-11.1)
[2021-11-29 11:50] LABS: INR 1.1; Prothrombin Time 11.8 Seconds (9.4-12.1)
[2021-11-29 11:53] LABS: Activated Partial Thrombo Time 35.9 Seconds (26.0-36.0)
[2021-11-29 12:27] LABS: BUN/Creatinine Ratio 16 (6-26); Blood Urea Nitrogen 14 mg/dL (6-20); Carbon Dioxide 26 mEq/L (23-29); Chloride 105 mEq/L (98-107); Glucose 107 mg/dL (70-105); Osmolality,Calculated 289 (280-300); Potassium 3.3 mEq/L (3.5-5.1); Sodium 139 mEq/L (136-145); Troponin I 0.04 ng/mL (< 0.04); eGFR For African Americans > 60 (> 60); eGFR For Non-African Americans > 60 (> 60)
[2021-11-29] MEDS ORDERED: Potassium Effervescent 25 MEQ TABLET.EFF PO ONE (12:33)
[2021-11-29] MEDS ORDERED: Naloxone 0.4 MG/ML INJ IVP PRN (13:22)
[2021-11-29] MEDS ORDERED: Ondansetron 4 MG/2 ML VIAL IVP PRN (13:22)
[2021-11-29] MEDS ORDERED: Nitroglycerin 0.4 MG TAB.SUBL SL PRN (13:29)
[2021-11-29] MEDS ORDERED: *HR* Heparin 5,000 UNIT/ML VIAL IVP ONE (13:29)
[2021-11-29] MEDS ORDERED: Perflutren Lipid Microsphere 1.3 ML in 0.9 % Sodium Chloride 8.7 ML IVP PRN (13:29)
[2021-11-29] MEDS ORDERED: *HR* Heparin 5,000 UNIT/ML VIAL IVP PRN ×2 (13:29)
[2021-11-29 13:58] LABS: Hematocrit 45.7 % (37.5-50.1); Hemoglobin 15.2 g/dL (12.9-16.9); Mean Corpuscular HGB Conc 33.3 g/dL (31.6-35.5); Mean Corpuscular Hemoglobin 29.7 pg (28.0-33.3); Mean Corpuscular Volume 89.3 fL (83.0-100.0); Mean Platelet Volume 8.6 fL (9.4-12.4); Platelet Count 223 K/mcL (140-400); Red Blood Count 5.12 M/mcL (4.19-5.50); Red Cell Distribution Width 13.7 % (11.5-14.5)
[2021-11-29 14:05] LABS: Heparin anti-factor XA UFH < 0.04 IU/mL (0.30-0.70); Prothrombin Time 11.6 Seconds (9.4-12.1)
[2021-11-29] MEDS: Heparin 25,000UNIT/250ML 1/2NS 25,000 UNIT/250 ML IV.SOLN IVC SCH (14:27)
[2021-11-29] MEDS: Acetaminophen 325 MG TABLET PO PRN (14:33)
[2021-11-29] MEDS: amLODIPine 5 MG TABLET PO SCH (18:49)
[2021-11-30 04:33] LABS: Basophils % 0.2 %; Eosinophils # 0.2 K/mcL (0.0-0.6); Eosinophils % 1.5 %; Hematocrit 45.5 % (37.5-50.1); Hemoglobin 15.4 g/dL (12.9-16.9); Immature Granulocytes % 1.2 % (0-4); Lymphocytes # 2.1 K/mcL (0.6-4.6); Mean Corpuscular HGB Conc 33.8 g/dL (31.6-35.5); Mean Corpuscular Hemoglobin 30.1 pg (28.0-33.3); Mean Platelet Volume 8.9 fL (9.4-12.4); Monocytes # 1.2 K/mcL (0.0-1.3); Monocytes % 11.2 %; Neutrophils # 6.9 K/mcL (1.6-8.9); Platelet Count 191 K/mcL (140-400); Red Blood Count 5.11 M/mcL (4.19-5.50); Red Cell Distribution Width 13.9 % (11.5-14.5); Segmented Neutrophils % 65.9 %; White Blood Count 10.5 K/mcL (4.3-11.1)
[2021-11-30 04:53] LABS: Alanine Aminotransferase 26 Units/L (7-52); Albumin 4.1 g/dL (3.5-5.7); Albumin/Globulin Ratio 1.6 (1.1-2.2); Alkaline Phosphatase 56 Units/L (34-104); Aspartate Amino Transferase 27 Units/L (13-39); BUN/Creatinine Ratio 14 (6-26); Bilirubin,Total 0.5 mg/dL (0.3-1.0); Blood Urea Nitrogen 11 mg/dL (6-20); Carbon Dioxide 27 mEq/L (23-29); Chloride 104 mEq/L (98-107); Cholesterol 199 mg/dL (< 200); Globulin 2.6 g/dL (2.4-3.5); Glucose 104 mg/dL (70-105); HDL Cholesterol 33 mg/dL (40-59); LDL Cholesterol,Calculated 133 mg/dL (< 100); Osmolality,Calculated 286 (280-300); Potassium 3.4 mEq/L (3.5-5.1); Sodium 138 mEq/L (136-145); Total Protein 6.7 g/dL (6.4-8.9); Triglycerides 166 mg/dL (< 150); eGFR For African Americans > 60 (> 60); eGFR For Non-African Americans > 60 (> 60)
[2021-11-30] MEDS: Acetaminophen 325 MG TABLET PO PRN ×2 (05:21→20:15)
[2021-11-30] MEDS ORDERED: Regadenoson 0.4 MG/5 ML SYRINGE IVP ONE (07:06)
[2021-11-30] MEDS: amLODIPine 5 MG TABLET PO SCH (08:32)
[2021-11-30] MEDS: Aspirin 81 MG TAB.CHEW PO SCH (08:33)
[2021-11-30] MEDS: Heparin 25,000UNIT/250ML 1/2NS 25,000 UNIT/250 ML IV.SOLN IVC SCH (13:41)
[2021-11-30] MEDS: Metoprolol 100 MG TABLET PO SCH ×2 (15:39→20:06)
[2021-11-30] MEDS ORDERED: *HR* FentaNYL (PF) 100 MCG/2 ML VIAL ONE (16:42)
[2021-11-30] MEDS ORDERED: *HR* Midazolam HCl 2 MG/2 ML VIAL ONE (16:43)
[2021-11-30] MEDS ORDERED: Heparin 1,000 UNITS/500 mL 500 ML ONE (16:43)
[2021-11-30] MEDS ORDERED: Iopamidol - 370 200 ML INFUS..BTL ONE ×2 (16:43→16:53)
[2021-11-30] MEDS ORDERED: *HR* Heparin 10,000 UNIT/10 ML VIAL ONE (16:43)
[2021-11-30] MEDS ORDERED: 0.9 % Sodium Chloride 2,000 ML ONE (16:43)
[2021-11-30] MEDS ORDERED: Nitroglycerin 1,000 MCG/5 ML VIAL IV ONE (16:43)
[2021-11-30] MEDS ORDERED: *HR* Ticagrelor 90 MG TABLET ONE (17:25)
[2021-11-30] MEDS: *HR* Ticagrelor 90 MG TABLET PO SCH (20:06)
[2021-11-30] MEDS: 0.9 % Sodium Chloride 1,000 ML IVC SCH (20:06)
[2021-12-01] MEDS: Acetaminophen 325 MG TABLET PO PRN (04:34)
[2021-12-01] MEDS: 0.9 % Sodium Chloride 1,000 ML IVC SCH (04:34)
[2021-12-01 04:54] LABS: Hematocrit 48.1 % (37.5-50.1); Hemoglobin 16.4 g/dL (12.9-16.9)
[2021-12-01 05:28] LABS: BUN/Creatinine Ratio 13 (6-26); Blood Urea Nitrogen 9 mg/dL (6-20); eGFR For African Americans > 60 (> 60); eGFR For Non-African Americans > 60 (> 60)
[2021-12-01] MEDS: Aspirin 81 MG TAB.CHEW PO SCH (09:37)
[2021-12-01] MEDS: Metoprolol 100 MG TABLET PO SCH (09:37)
[2021-12-01] MEDS: *HR* Ticagrelor 90 MG TABLET PO SCH ×2 (09:38→21:14)
[2021-12-01] MEDS: amLODIPine 5 MG TABLET PO SCH (09:47)
[2021-12-01] MEDS ORDERED: *HR* Labetalol 20 MG/4 ML SYRINGE IVP ONE (12:30)
[2021-12-02] MEDS: *HR* Enoxaparin 40 MG/0.4 ML SYRINGE SQ SCH (06:30)
[2021-12-02] MEDS: allopurinoL 300 MG TABLET PO SCH (08:33)
[2021-12-02] MEDS: Aspirin 81 MG TAB.CHEW PO SCH (08:33)
[2021-12-02] MEDS: amLODIPine 5 MG TABLET PO SCH (08:34)
[2021-12-02] MEDS: *HR* Ticagrelor 90 MG TABLET PO SCH ×2 (08:34→20:48)
[2021-12-02] MEDS ORDERED: 0.9 % Sodium Chloride 1,000 ML ONE ×2 (11:21→11:41)
[2021-12-02] MEDS ORDERED: *HR* Heparin 10,000 UNIT/10 ML VIAL ONE ×2 (11:40→12:36)
[2021-12-02] MEDS ORDERED: Nitroglycerin 1,000 MCG/5 ML VIAL IV ONE (11:40)
[2021-12-02] MEDS ORDERED: Heparin 1,000 UNITS/500 mL 500 ML ONE (11:40)
[2021-12-02] MEDS ORDERED: Iopamidol - 370 200 ML INFUS..BTL ONE (11:40)
[2021-12-02] MEDS ORDERED: *HR* FentaNYL (PF) 100 MCG/2 ML VIAL ONE (11:47)
[2021-12-02] MEDS ORDERED: *HR* Midazolam HCl 2 MG/2 ML VIAL ONE (11:47)
[2021-12-02] MEDS: Acetaminophen 325 MG TABLET PO PRN (13:12)
[2021-12-02] MEDS ORDERED: 0.9 % Sodium Chloride 1,000 ML IVC SCH (13:30)
[2021-12-02] MEDS ORDERED: *HR* OxyCODONE/APAP 5/325 TABLET PO ONE (14:41)
[2021-12-03] MEDS: *HR* Enoxaparin 40 MG/0.4 ML SYRINGE SQ SCH (05:15)
[2021-12-03 05:54] LABS: Basophils % 0.1 %; Eosinophils # 0.1 K/mcL (0.0-0.6); Eosinophils % 0.4 %; Hematocrit 41.6 % (37.5-50.1); Immature Granulocytes % 0.6 % (0-4); Lymphocytes # 0.9 K/mcL (0.6-4.6); Lymphocytes % 6.2 %; Mean Corpuscular HGB Conc 33.7 g/dL (31.6-35.5); Mean Corpuscular Hemoglobin 29.8 pg (28.0-33.3); Mean Corpuscular Volume 88.5 fL (83.0-100.0); Mean Platelet Volume 9.6 fL (9.4-12.4); Monocytes # 1.9 K/mcL (0.0-1.3); Monocytes % 13.2 %; Neutrophils # 11.1 K/mcL (1.6-8.9); Platelet Count 195 K/mcL (140-400); Red Cell Distribution Width 14.4 % (11.5-14.5); Segmented Neutrophils % 79.5 %
[2021-12-03 06:10] LABS: BUN/Creatinine Ratio 15 (6-26); Blood Urea Nitrogen 12 mg/dL (6-20); Calcium 8.7 mg/dL (8.6-10.3); Carbon Dioxide 23 mEq/L (23-29); Chloride 105 mEq/L (98-107); Glucose 122 mg/dL (70-105); Magnesium 1.9 mg/dL (1.6-2.6); Osmolality,Calculated 287 (280-300); Potassium 3.6 mEq/L (3.5-5.1); Sodium 138 mEq/L (136-145); eGFR For African Americans > 60 (> 60); eGFR For Non-African Americans > 60 (> 60)
[2021-12-03] MEDS: Aspirin 81 MG TAB.CHEW PO SCH (08:37)
[2021-12-03] MEDS: *HR* Ticagrelor 90 MG TABLET PO SCH ×2 (08:38→20:03)
[2021-12-03] MEDS: allopurinoL 300 MG TABLET PO SCH (08:39)
[2021-12-03] MEDS: amLODIPine 5 MG TABLET PO SCH (08:39)
[2021-12-03] MEDS ORDERED: 0.9 % Sodium Chloride 250 ML IV ONE (10:05)
[2021-12-03] MEDS ORDERED: *HR* FentaNYL (PF) 100 MCG/2 ML VIAL ONE (10:30)
[2021-12-03] MEDS ORDERED: *HR* Heparin 10,000 UNIT/10 ML VIAL ONE (10:30)
[2021-12-03] MEDS ORDERED: *HR* Midazolam HCl 2 MG/2 ML VIAL ONE (10:30)
[2021-12-03] MEDS ORDERED: Nitroglycerin 1,000 MCG/5 ML VIAL IV ONE (10:30)
[2021-12-03] MEDS ORDERED: Iopamidol - 370 200 ML INFUS..BTL ONE (10:30)
[2021-12-03] MEDS ORDERED: Heparin 1,000 UNITS/500 mL 500 ML ONE (10:30)
[2021-12-03] MEDS ORDERED: 0.9 % Sodium Chloride 2,000 ML ONE (10:30)
[2021-12-04 02:14] LABS: Basophils % 0.2 %; Eosinophils # 0.1 K/mcL (0.0-0.6); Eosinophils % 0.4 %; Hematocrit 40.3 % (37.5-50.1); Hemoglobin 13.3 g/dL (12.9-16.9); Immature Granulocytes % 0.7 % (0-4); Lymphocytes # 0.9 K/mcL (0.6-4.6); Lymphocytes % 7.5 %; Mean Corpuscular Hemoglobin 29.8 pg (28.0-33.3); Mean Corpuscular Volume 90.2 fL (83.0-100.0); Mean Platelet Volume 9.1 fL (9.4-12.4); Monocytes # 1.8 K/mcL (0.0-1.3); Monocytes % 14.4 %; Neutrophils # 9.4 K/mcL (1.6-8.9); Platelet Count 168 K/mcL (140-400); Red Blood Count 4.47 M/mcL (4.19-5.50); Red Cell Distribution Width 14.8 % (11.5-14.5); Segmented Neutrophils % 76.8 %; White Blood Count 12.2 K/mcL (4.3-11.1)
[2021-12-04 02:42] LABS: BUN/Creatinine Ratio 13 (6-26); Blood Urea Nitrogen 11 mg/dL (6-20); Calcium 8.9 mg/dL (8.6-10.3); Carbon Dioxide 22 mEq/L (23-29); Chloride 107 mEq/L (98-107); Glucose 115 mg/dL (70-105); Osmolality,Calculated 286 (280-300); Potassium 3.6 mEq/L (3.5-5.1); Sodium 138 mEq/L (136-145); eGFR For African Americans > 60 (> 60); eGFR For Non-African Americans > 60 (> 60)
[2021-12-04] MEDS: *HR* Enoxaparin 40 MG/0.4 ML SYRINGE SQ SCH (05:20)
[2021-12-04] MEDS: Aspirin 81 MG TAB.CHEW PO SCH (08:03)
[2021-12-04] MEDS: *HR* Ticagrelor 90 MG TABLET PO SCH (08:03)
[2021-12-04] MEDS: allopurinoL 300 MG TABLET PO SCH (08:03)
[2021-12-04 08:27] LABS: Total Volume 24 Hour,Urine 0.41 Liters (0.80-1.80)
[2021-12-04 08:42] LABS: Potassium,Urine 26.5 mEq/L
[2021-12-04 11:03] VITALS: BP 139/81; PULSE 70; TEMP 98.4; O2SAT 97
== END 2021-12-04 16:15 | disposition home or self-care (01) | DRG 246 ==
LOC: EMEROOARM 11:02 → 3BNU 11:02 → SUATTDRO 13:11 → 3BNU 13:36
PROVIDERS: ADMIT General Practice; ATTEND Registered Nurse